=== PATIENT | female | born 1955 | race Caucasian/White ===

== ENCOUNTER 2019-08-31 11:02 | Outpatient (CLI) | payer BC, SELFPAY ==
--- NOTE | 2019-08-31 | US_ITS ---
WS: [id number] Complete ABDOMINAL ULTRASOUND HISTORY: ABDOMINAL PAIN, EPIGASTRIC COMPARISON: 09/22/2017 and 03/24/2014. CT 09/22/2017 Liver: 20.0 cm in length. Liver is enlarged with no intrapedicular dilatation or mass. Mild hepatic s teatosis. There is a hypoechoic well-circumscribed mass in the fat posterior to the liver. This corre sponds to a RIGHT adrenal adenoma which has been previously described. Adenoma measures 2.8 x 2.7 cm. Gallbladder: Normally distended with no gallstones, wall thickening or pericholecystic fluid. Gallbladder wall thickness: 0.2 cm. Pancreas: Normal size and echogenicity. CBD: 0.4 cm. Right kidney: 13.1 cm x 5.4 cm x 4.5 cm. No mass, cortical thickening or hydronephrosis. Left kidney: 12.0 cm x 4.5 cm x 4.2 cm. No mass, cortical thickening or hydronephrosis. Spleen: Spleen is slightly enlarged measuring 14 cm in length. Abdominal aorta and IVC are within normal limits. No ascites. US/US abdomen complete* [id number] IMPRESSION: 1. Normal gallbladder. 2. Mild hepatic steatosis and hepatomegaly. 3. RIGHT adrenal adenoma. 4. Spleen is slightly enlarged at 14 cm in length. Similar to the prior study of 03/24/2014.
== END 2019-08-31 11:03 | disposition home or self-care (01) ==
LOC: US 11:02
PROVIDERS: Family Provider Family Medicine; PCP Family Medicine; Visit Provider Family Medicine
DX: K76.0 Fatty (change of) liver, not elsewhere classified (principal); R16.0 Hepatomegaly, not elsewhere classified; D35.01 Benign neoplasm of right adrenal gland; R16.1 Splenomegaly, not elsewhere classified
CPT/HCPCS: 76700

== ENCOUNTER 2019-09-19 08:44 | Outpatient (REF) | payer BC, SELFPAY ==
[2019-09-24 13:39] LABS: Urine Cortisol 1 mg/dL
[2019-09-29 13:12] LABS: Calculated Total (E+NE) 27 mcg/24 h (26-121)
== END 2019-09-19 08:45 | disposition home or self-care (01) ==
LOC: LAB 08:44
PROVIDERS: Family Provider Family Medicine; PCP Family Medicine; Visit Provider Family Medicine
DX: K76.0 Fatty (change of) liver, not elsewhere classified (principal); D35.01 Benign neoplasm of right adrenal gland; R16.1 Splenomegaly, not elsewhere classified; E11.9 Type 2 diabetes mellitus without complications; K21.9 Gastro-esophageal reflux disease without esophagitis; E78.00 Pure hypercholesterolemia, unspecified; I10 Essential (primary) hypertension; E03.9 Hypothyroidism, unspecified; R10.13 Epigastric pain
CPT/HCPCS: 36415; 82088; 82384; 82533; 83835; 84244

== ENCOUNTER 2019-10-04 07:39 | Day surgery (SDC) | payer BC, SELFPAY ==
[2019-10-03 10:51] VITALS: BMI 46.0
--- NOTE | 2019-10-04 07:56 | W.PM.OPSFHP ---
Same Day Surgery H&P Indication for Procedure/HPI DATE OF PROCEDURE: October 04, 2019 CHIEF COMPLAINT/INDICATIONFOR SURGICAL PROCEDURE: gerd PREOP DIAGNOSIS: gerd/screening PLANNED PROCEDRUE: Operation Date: 10/04/19 09:00 Proposed Procedures p EGD/COLON 15637 48794 R10.9(Not Applicable) - Vasquez Gilmore MD s Colonoscopy(Not Applicable) - Vasquez Gilmore MD Medications/Allergies* Home Medications Medication Instructions Recorded Confirmed Type albuterol sulfate 90 mcg/actuation 1 inh INHALATION Q4-5H PRN 09/06/19 10/03/19 History aerosol inhaler allopurinol 300 mg tablet 300 mg PO DAILY 09/06/19 10/03/19 History cetirizine 10 mg tablet 10 mg PO DAILY 09/06/19 10/03/19 History coenzyme Q10 100 mg capsule 300 mg PO DAILY cap 09/06/19 10/03/19 History fluticasone 250 mcg-salmeterol 50 1 inh INHALATION DAILY 09/06/19 10/03/19 History mcg/dose blistr powdr for inhalation cornelio (Zingiber officinalis) 500 500 mg PO DAILY 09/06/19 10/03/19 History mg capsule glimepiride 1 mg tablet 2 mg PO DAILY 09/06/19 10/03/19 History levothyroxine 150 mcg tablet 150 mcg PO DAILY 09/06/19 10/03/19 History lisinopril 40 mg tablet 40 mg PO DAILY 09/06/19 10/03/19 History magnesium oxide 400 mg (241.3 mg 400 mg PO DAILY tab 09/06/19 10/03/19 History magnesium) tablet pantoprazole 40 mg tablet,delayed 40 mg PO DAILY 09/06/19 10/03/19 History release sitagliptin 50 mg tablet 50 mg PO DAILY 09/06/19 10/03/19 History triamcinolone acetonide INTRANASAL 09/06/19 09/06/19 History zinc 50 mg tablet 50 mg PO DAILY 09/06/19 10/03/19 History cholecalciferol (vitamin D3) 1,250 mcg PO DAILY 10/03/19 10/03/19 History pyridoxine (vitamin B6) 25 mg PO DAILY 10/03/19 10/03/19 History vitamin B complex 1 tab PO DAILY 10/03/19 10/03/19 History Allergies/Adverse Reactions Allergy/AdvReac Type Severity Reaction Status Date / Time cobamamide Allergy ADR/ALGY-Fl Verified 09/06/19 13:09 [From Adenosylcobalamin] ushing meperidine Allergy ALGY-Rash Verified 09/06/19 13:09 Penicillins Allergy ALGY-Rash Verified 09/06/19 13:09 Sulfa (Sulfonamide Allergy ALGY-Rash Verified 09/06/19 13:09 Antibiotics) Pertinent History/Comorbid Conditions* Medical History (Updated 09/06/19 @ 17:40 by Vasquez Gilmore MD) Diabetes GERD (gastroesophageal reflux disease) Hypercholesteremia Hypertension Hypothyroidism Ventral hernia Surgical History (Updated 09/06/19 @ 13:45 by Vasquez Gilmore MD) History of arthroscopic knee surgery Right 2x History of colonoscopy 2016 History of esophagogastroduodenoscopy (EGD) Family History (Updated 09/06/19 @ 11:34 by JUANY Mtz) Heart disease Anesthesia complication Father Denies family history of Bleeding disorder Social History Smoking and tobacco status: never smoked Alcohol intake: never Lives independently: Yes Household members: spouse Current occupational status: employed History of recent travel: No Pertinent Exam Findings alert, oriented x 3 and regular rate & rhythm Recommendations Surgery/Procedure today Coding Level of Care Code Acute Rn Telephone Triage for Lucrecia Fernandes
[2019-10-04 08:10] VITALS: BP 152/107; PULSE 82; RESP 16; TEMP 36.8; O2SAT 97
[2019-10-04] MEDS: sodium chloride 0.9% 1,000 ML 30 ML (08:17)
[2019-10-04 08:23] LABS: Glucose Point of Care 123 mg/dL (70-110)
--- NOTE | 2019-10-04 08:42 | ANES.PREANE2 ---
Pre-Anesthetic Assessment Pre-Anesthetic Assessment: Height/Weight: Height 1.7 m Weight 133.356 kg Temp Pulse Resp BP Pulse Ox 98.2 F 82 16 152/107 97 10/04/19 08:10 10/04/19 08:10 10/04/19 08:10 10/04/19 08:10 10/04/19 08:10 Preop Diagnosis: abdominal pain/gerd Proposed Procedure: Operation Date: 10/04/19 09:00 Proposed Procedures p EGD/COLON 73410 74892 R10.9(Not Applicable) - Vasquez Gilmore MD s Colonoscopy(Not Applicable) - Vasquez Gilmore MD Familial anesthetic complications: none Was Beta Lola taken within 24 hours: N/A Last intake: Intake Last Liquid Date 10/03/19 Last Liquid Time 22:00 Last Solid Date 10/02/19 Last Solid Time 20:00 Social: Social History: No alcohol and No tobacco Airway: Submandibular: WNL Cervical ROM: WNL MP: 1 Dentition: Full History/ROS: No significant history except as noted Pulmonary: Pulmonary: Asthma (advair daily), Sleep apnea (CPAP) and SOB CV/HEM: CV/HEM: Arrythmia and HTN : : None reported Hepatic: Hepatic: None reported GI: GI: GERD (controlled with meds) Metabolic: Metabolic: DM ( usually 95-106 ), Hyperlipidemia, Morbid obesity and Thyroid (hypothyroid) Musc/skel: Musc/skel: Lower Back Pain and Weakness (legs) Neuropsych: Neuropsych: None reported Anesthetic Plan: ASA status: 3 Anesthesia: MAC Risk of > 500 ml blood loss (7ml/kg in children): No PFSH Anesthesia PFSH: Medical History (Updated 09/06/19 @ 17:40 by Vasquez Gilmore MD) Diabetes GERD (gastroesophageal reflux disease) Hypercholesteremia Hypertension Hypothyroidism Ventral hernia Surgical History History of arthroscopic knee surgery Right 2x History of colonoscopy 2016 History of esophagogastroduodenoscopy (EGD) Social History Smoking and tobacco status: never smoked Alcohol intake: never Lives independently: Yes Household members: spouse Current occupational status: employed History of recent travel: No Data Anesthesia Other Labs: Laboratory Results - last 48 hr 10/04/19 08:15 POC Glucose 123 Cardiac Studies: No Data to Display
--- NOTE | 2019-10-04 08:47 | ANES.PREANE2 ---
Pre-Anesthetic Assessment Pre-Anesthetic Assessment: Height/Weight: Height 1.7 m Weight 133.356 kg Temp Pulse Resp BP Pulse Ox 98.2 F 82 16 152/107 97 10/04/19 08:10 10/04/19 08:10 10/04/19 08:10 10/04/19 08:10 10/04/19 08:10 Preop Diagnosis: Ventral hernia Proposed Procedure: Operation Date: 10/04/19 09:00 Proposed Procedures p EGD/COLON 58656 14285 R10.9(Not Applicable) - Vasquez Gilmore MD s Colonoscopy(Not Applicable) - Vasquez Gilmore MD Last intake: Intake Last Liquid Date 10/03/19 Last Liquid Time 22:00 Last Solid Date 10/02/19 Last Solid Time 20:00 Social: Social History: No alcohol and No tobacco Exam: Pre-Anes Outpt Exam: alert, oriented x 3, clear to auscultation bilaterally (bilat wheezes) and regular rate & rhythm Airway: Submandibular: WNL Cervical ROM: WNL MP: 2 Dentition: Full History/ROS: No significant history except as noted Pulmonary: Pulmonary: Asthma, COPD and Sleep apnea CV/HEM: CV/HEM: HTN : : None reported Hepatic: Hepatic: None reported GI: GI: GERD Metabolic: Metabolic: Morbid obesity Musc/skel: Musc/skel: None reported Neuropsych: Neuropsych: None reported Anesthetic Plan: ASA status: 3 Anesthesia: Anesthesia Evaluation and MAC Risk of > 500 ml blood loss (7ml/kg in children): No PFSH Anesthesia PFSH: Medical History Diabetes GERD (gastroesophageal reflux disease) Hypercholesteremia Hypertension Hypothyroidism Ventral hernia Surgical History History of arthroscopic knee surgery Right 2x History of colonoscopy 2016 History of esophagogastroduodenoscopy (EGD) Family History Father Anesthesia complication Other Heart disease Denies family history of Bleeding disorder Social History Smoking and tobacco status: never smoked Alcohol intake: never Lives independently: Yes Household members: spouse Current occupational status: employed History of recent travel: No Data Anesthesia Other Labs: Laboratory Results - last 48 hr 10/04/19 08:15 POC Glucose 123 Cardiac Studies: No Data to Display
[2019-10-04 09:40] VITALS: BP 106/66; PULSE 61; RESP 16; TEMP 36.2; O2SAT 100
--- NOTE | 2019-10-04 09:46 | ANE.PACU2 ---
 Inpatient post-anesthesia follow up: Airway intact: Yes Vital signs: Temperature 97.1 F Pulse Rate 61 Respiratory Rate 16 Blood Pressure 106/66 Pulse Oximetry 100 Oxygen Delivery Me thod Nasal Cannula Oxygen Flow Rate 4 Fraction of Inspir ed Oxygen Hydration adequate: Yes Nausea and vomiting: No Pain level: 1 Mental status: Baseline
[2019-10-04 09:49] VITALS: BP 121/69; PULSE 64; RESP 18; O2SAT 100
== END 2019-10-04 10:05 | disposition home or self-care (01) ==
PROVIDERS: Family Provider Family Medicine; PCP Family Medicine; Visit Provider Surgery
PROC: 0DJ08ZZ Inspection of Upper Intestinal Tract, Via Natural or Artificial Opening Endoscopic (ICD-10-PCS; CPT 43235; principal; 2019-10-04 09:00)
PROC: 0DJD8ZZ Inspection of Lower Intestinal Tract, Via Natural or Artificial Opening Endoscopic (ICD-10-PCS; CPT 45378; 2019-10-04 09:00)
DX: Z12.11 Encounter for screening for malignant neoplasm of colon (principal); K21.9 Gastro-esophageal reflux disease without esophagitis; K31.7 Polyp of stomach and duodenum; K29.30 Chronic superficial gastritis without bleeding; D12.0 Benign neoplasm of cecum; E03.9 Hypothyroidism, unspecified; Z82.49 Family history of ischemic heart disease and other diseases of the circulatory system; K57.30 Diverticulosis of large intestine without perforation or abscess without bleeding; K64.8 Other hemorrhoids; G47.30 Sleep apnea, unspecified; I10 Essential (primary) hypertension; J44.9 Chronic obstructive pulmonary disease, unspecified; E66.01 Morbid (severe) obesity due to excess calories; Z68.42 Body mass index [BMI] 45.0-49.9, adult; E11.9 Type 2 diabetes mellitus without complications
CPT/HCPCS: 12345; 36416; 43251; 45380; 82962; 88305; J2704; J3370; J7030; J7050

== ENCOUNTER 2020-01-02 13:26 | Outpatient (CLI) | payer BC, SELFPAY ==
--- NOTE | 2020-01-02 13:43 | XR_ITS ---
WS: [id number] XR shoulder LT min 2V* [id number] REASON FOR EXAM: LEFT SHOULDER PAIN FINDINGS: Mild degenerate changes of the acromioclavicular joint. Calcification along noted along the insertion of the greater tuberosity. The glenoid humeral articulations normal. No fractures of the scapular are clavicle. XR/XR shoulder LT min 2V* [id number] IMPRESSION: Low-grade calcific tendinitis of the shoulder Mild osteoarthritic changes off the acromion process.
== END 2020-01-02 13:27 | disposition home or self-care (01) ==
LOC: WPI 13:27
PROVIDERS: Family Provider Family Medicine; PCP Family Medicine; Visit Provider Family Medicine
DX: M75.32 Calcific tendinitis of left shoulder (principal); M19.012 Primary osteoarthritis, left shoulder
CPT/HCPCS: 73030

== ENCOUNTER 2020-01-24 07:29 | Outpatient (CLI) | payer BC, SELFPAY ==
--- NOTE | 2020-01-24 08:00 | NM_ITS ---
WS: [id number] NUCLEAR MEDICINE HIDA SCAN WITH GALLBLADDER EJECTION FRACTION HISTORY: abdominal pain, bloating COMPARISON: 10/02/2017 TECHNIQUE: The patient was intravenously injected with 7.9 mCi of TC99m Mebrofenin. Immediate imaging over the right upper quadrant was followed by 5 minute image and additional images for a total of 60 minutes. Normal uptake of radiotracer throughout the liver. Activity identified in the gallbladder at 15 minutes and well distended by 60 minutes. Activity in the proximal small bowel was seen by 15 minutes. Good washout of the radiotracer from the liver by 60 minutes. The patient then drank 8 ounces of Ensure Plus. Ejection fraction at 60 minutes was 90%. Normal GB ej ection fraction is 35-75%. Post fatty meal symptoms: None. NM/NM hepatobiliary w phar* [id number] IMPRESSION: 1. Normal HIDA scan. 2. Normal gallbladder ejection fraction.
== END 2020-01-24 07:30 | disposition home or self-care (01) ==
LOC: RAD 07:30
PROVIDERS: PCP Family Medicine; Visit Provider Surgery
DX: R10.9 Unspecified abdominal pain (principal); R14.0 Abdominal distension (gaseous)
CPT/HCPCS: 78227; A9537

== ENCOUNTER 2020-02-03 07:50 | Outpatient (CLI) | payer BC, SELFPAY ==
--- NOTE | 2020-02-03 08:00 | MR_ITS ---
WS: [id number] MRI LEFT SHOULDER NONCONTRAST TECHNIQUE: Sagittal T2, coronal T1, T2 and proton density imaging. Axial gradient PDE imaging. CLINICAL INFORMATION: M25.519 Pain in unspecified shoulder COMPARISON: None. FINDINGS: Moderate degenerative arthritis at the AC joint with a small amount of edema. Minimal downsloping of the acromion. Mild narrowing of subacromial space. Mild tendinopathy distal supraspinatus. Tiny intra substance tear involving the distal dorsal supraspinatus. Moderate tendinopathy involving the infrasp inatus at the insertion. Small bursal surface tear involving the distal infraspinatus near the insert ion. Normal teres minor. Normal subscapularis. Tendinopathy involving the intra-articular biceps tendon. N ormal biceps tendon in the bicipital groove. Glenoid labrum appears grossly normal. T2 signal abnorma lity in the rotator interval. Biceps labral anchor appears intact. MR/MR shoulder LT wo con* [id number] IMPRESSION: 1. Moderate degenerative arthritis AC joint with slight narrowing of the subac romial space. 2. Tendinopathy distal infraspinatus and supraspinatus. Tiny intrasubstance te ar involving the distal dorsal supraspinatus. Tendinopathy with tiny bursal jackie face tear involving the distal infraspinatus. 3. Rotator cuff is otherwise normal. 4. Prominent tendinopathy involving the intra-articular biceps tendon. 5. Normal biceps tendon in the bicipital groove.
--- NOTE | 2020-02-03 08:45 | MR_ITS ---
WS: [id number] INDICATION: Left shoulder pain. Lump mid proximal humerus. TECHNIQUE: MR of the left humerus without gadolinium enhancement. Coronal T1 and STIR imaging. Axial T2 and PD imaging. Sagittal T1 and STIR imaging. FINDINGS: Palpable marker is placed over the upper left arm in the area of pain and concern. Deep to the palpable markers is normal underlying subcutaneous lipomatous tissue. No evidence of underlying m ass or lesion. No drainable abscess or fluid collection. No pathologic abnormalities deep to the targ eted markers. Bone marrow signal in the humerus is normal. Shoulder findings discussed on the shoulder MRI. MR/MR humerus LT wo con* [id number] IMPRESSION: 1. No evidence of pathologic mass or lesion deep to the target markers. Normal underlying subcutaneous fat. 2. Normal bone marrow signal in the humerus 3. Shoulder findings described on shoulder MRI
[2020-02-03 10:10] LABS: Blood Urea Nitrogen 24 mg/dL (8-23); Glomerular Filtration Rate 45.4 mL/min (90-130)
== END 2020-02-03 07:51 | disposition home or self-care (01) ==
PROVIDERS: PCP Family Medicine; Visit Provider Specialist
DX: M25.512 Pain in left shoulder (principal); M19.012 Primary osteoarthritis, left shoulder
CPT/HCPCS: 73218; 73221; 82565; 84520

== ENCOUNTER 2020-02-17 13:25 | Outpatient (CLI) | payer BC, SELFPAY ==
[2020-02-17] MEDS: iohexol 300 mg/mL 50 mL Btl PO (14:06)
--- NOTE | 2020-02-17 14:30 | CT_ITS ---
WS: [id number] CT ABDOMEN AND PELVIS WITH CONTRAST HISTORY: ventral hernia TECHNIQUE: Imaging performed of the abdomen and pelvis with IV contrast. Single phase imaging of the abdomen. Coronal and sagittal reformats are submitted. All CT scans at [facility] use at least one of these dose optimization techniques: automated exposure control; mA and/or kV adjustment per patient size (includes targeted exams where dose is matched to clinical indication); or iterativ e reconstruction. IV CONTRAST: Visipaque 320; 95 mL IV. Oral contrast: Yes. DLP: 1170.82 mGy-cm. COMPARISON: 03/24/2014 Lower thorax: Multiple 2 to 3 mm nodules at the lung bases are stable. No suspicious mass. Heart is n ormal size. No hiatal hernia. Liver/biliary system: Mild hepatic steatosis. No bile duct dilatation or mass. Gallbladder: Normal. No gallstones or wall thickening. No pericholecystic fluid. Pancreas: Normal. Spleen: Normal. Adrenal glands: Well-circumscribed low-attenuation 3.0 cm mass in the RIGHT adrenal gland is stable. Normal LEFT adrenal gland. Right kidney: Mild cortical thinning. No obstruction or mass. Left kidney: Mild cortical thinning is stable. Slightly more thinning and atrophy of the LEFT kidney as compared to the RIGHT. Similar to the prior study. Aorta: Mild atherosclerosis, no aneurysm. Lymphadenopathy: None. Free fluid: None. GI tract: Appendix is not identified. No obstruction. A few scattered diverticula in the distal colon without inflammation. Abdominal wall: Muscular defects in the ventral abdominal wall containing omental fat only. The large st defect midline measures 5.2 cm. Just superior to this large defect is a smaller hernia with a maxi mum defect of 2.2 cm. This hernia also contains fat. The overall length of both hernias together is 6 .8 cm. Pelvis: No free fluid or adenopathy. Uterus and ovaries are normal. Bones: Mild degenerative disc disease at L4-5. CT/CT abdomen pelvis w con* [id number] IMPRESSION: 1. Ventral abdominal wall hernias x2. Hernias are very closely positioned randy cent to each other and along the midline of the abdominal wall. Both hernias co ntaining omental fat only. 2. Stable RIGHT adrenal mass.
[2020-02-17] MEDS: iodixanol 320 mg/mL 100mL Btl IV (14:46)
== END 2020-02-17 13:26 | disposition home or self-care (01) ==
PROVIDERS: PCP Family Medicine; Visit Provider Surgery
DX: K43.9 Ventral hernia without obstruction or gangrene (principal); E27.9 Disorder of adrenal gland, unspecified
CPT/HCPCS: 74177; Q9967

== ENCOUNTER 2020-02-20 05:49 | Day surgery (SDC) | payer BC, SELFPAY ==
[2020-02-16 10:37] VITALS: BMI 48.0
--- NOTE | 2020-02-16 10:45 | ECG_ITS ---
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 Measurements Intervals Bartley Rate: 67 P: 37 SC: 157 QRS: 8 QRSD: 129 T: 14 QT: 406 QTc: 429 Interpretive Statements SINUS RHYTHM RIGHT BUNDLE BRANCH BLOCK [120+ ms QRS DURATION, UPRIGHT V1, 40+ ms S IN I/aVL/V4/V5/V6] WARNING: DATA QUALITY MAY AFFECT INTERPRETATION Compared to ECG 09/22/2017 18:41:47 No significant changes Electronically Signed On 02-17-2020 15:57:19 CDT by Alejandro Maurer M.D. [email or web address]
--- NOTE | 2020-02-16 11:02 | ANES.PREANE2 ---
Pre-Anesthetic Assessment Pre-Anesthetic Assessment: Height/Weight: Height 1.7 m Weight 139.253 kg Preop Diagnosis: Incarcerated ventral hernia Proposed Procedure: Operation Date: 02/20/20 07:00 Proposed Procedures p Laparoscopic Ventral Hernia Repair w/ Mesh 16357 k43.9(Not Applicable) - Vasquez Gilmore MD Familial anesthetic complications: None Social: Social History: No alcohol and No tobacco Exam: Pre-Anes Outpt Exam: alert, oriented x 3, clear to auscultation bilaterally and regular rate & rhythm Additional Exam Findings (including area of procedure): murmur auscultated Airway: Cervical ROM: WNL MP: 1 Dentition: Full Pulmonary: Pulmonary: Asthma (mild) and Sleep apnea (CPAP (quit wearing it two years ago, d/t intolerance)) CV/HEM: CV/HEM: HTN and Murmur (diagnosed at age 36, was told she'd probably had it all her life - no syncope, no chest pains, SOB w/ walking up 2 flights of stairs and bending, mostly likely d/t deconditioningover) Comments: Armando did echo 4 -5 years 10/2015 CONCLUSIONS 1-Normal left ventricular size, systolic function and wall thickness, with no regional wall motion abnormalities. Normal left ventricular wall thickness. Normal diastolic filling pattern. Left ventricular ejection fraction is estimated at 67 2-Moderately thickened mitral valve. Moderate mitral annular calcification. No mitral valve stenosis. No mitral valve regurgitation. 3-There is no pericardial effusion. 4-Pulmonary artery systolic pressure is within normal limits. 5-Right atrial pressure is around 5 mm of mercury. 6-When compared to the echocardiogram dated 10/12/2013 there is no significant change : : Chronic renal Insufficiency GI: GI: GERD Metabolic: Metabolic: DM, Hyperlipidemia, Morbid obesity and Thyroid Musc/skel: Musc/skel: Lower Back Pain Neuropsych: Neuropsych: None reported Anesthetic Plan: ASA status: 3 Anesthesia: General Risk of > 500 ml blood loss (7ml/kg in children): No PFSH Anesthesia PFSH: Medical History (Updated 02/16/20 @ 10:32 by Effie Rivas RN) Basal cell carcinoma Diabetes GERD (gastroesophageal reflux disease) History of colon polyps Hypercholesteremia Hypertension Hypothyroidism Shoulder pain, left Squamous cell carcinoma Ventral hernia Surgical History History of arthroscopic knee surgery Right 2x History of colonoscopy (~10/04/19) Cecal and sigmoid colon polyp, mild diverticulosis History of esophagogastroduodenoscopy (EGD) (~10/04/19) Gastric polyp Family History Father Anesthesia complication Other Heart disease Denies family history of Bleeding disorder Social History Smoking and tobacco status: never smoked Alcohol intake: never Lives independently: Yes Household members: spouse Current occupational status: employed History of recent travel: No Data Anesthesia Cardiac Studies: No Data to Display
[2020-02-20] VITALS (10 sets, daily range): BP systolic 120–185; BP diastolic 65–95; PULSE 63–85; RESP 12–28; TEMP 36.4–37; O2SAT 93–99
[2020-02-20] MEDS: sodium chloride 0.9% 1,000 ML 30 ML IV (06:20)
[2020-02-20] MEDS: vancomycin 1,000 MG in sodium chloride 0.9% 250 ML 250 MG IV (06:20)
[2020-02-20 06:22] LABS: Glucose Point of Care 193 mg/dL (70-110)
--- NOTE | 2020-02-20 06:31 | P.ANESUD_ITS ---
Pre-Anesthetic Update Pre-Anesthetic Assessment: Date of Surgery/Procedure: 02/20/20 Preop Janay gnosis: Incarcerated ventral hernia Proposed Procedure: Operation Date: 02/20/20 07:00 Proposed Procedures p Laparoscopic Ventral Hernia Repair w/ Mesh 10503 k43.9(Not Applicable) - Vasquez Gilmore MD Any changes to Pre-Anesthetic Assessment?: No Last Intake: Intake Last Liquid Date 02/20/20 Last Liquid Time 04:30 Last Solid Date 02/19/20 Last Solid Time 21:30 Labs Last 48hrs: Laboratory Results - last 48 hr 02/20/20 06:17 POC Glucose 193 Vitals: Temperature 97.5 F L 02/20/20 06:12 Temperature Source Temporal Artery S can 02/20/20 06:12 Pulse Rate 85 02/20/20 06:12 Respiratory Rate 16 02/20/20 06:12 Blood Pressure 164/87 02/20/20 06:26 Blood Pressure Tamela n 112 02/20/20 06:26 Pulse Oximetry 99 02/20/20 06:12 Oxygen Delivery Me thod 02/20/20 06:12 Exam: Pre-Anes Outpt Exam: alert, oriented x 3, clear to auscultation bilaterally and regular rate & rhythm Cardiac Studies: No Data to Display
--- NOTE | 2020-02-20 06:54 | W.PM.OPSUD ---
Surgery/Procedure H&P Update DATE OF PROCEDURE: February 20, 2020 DATE H&P PERFORMED: 01/27/20 H&P UPDATE INFORMATION: I have reviewed H&P completed within last 30 days, I have examined patient prior to procedure and No changes to prior documentation PREOP DIAGNOSIS: Incarcerated ventral hernia PLANNED PROCEDURE: Operation Date: 02/20/20 07:00 Proposed Procedures p Laparoscopic Ventral Hernia Repair w/ Mesh 56063 k43.9(Not Applicable) - Vasquez Gilmore MD
--- NOTE | 2020-02-20 07:30 | SUR.OPER ---
notified of surgical start
--- NOTE | 2020-02-20 08:28 | P.OP_ITS ---
Operative Report Date of procedure: February 20, 2020 Pre-op Diagnosis: Incarcerated ventral hernia Post-op diagnosis: same Procedure Done: Laparoscopic repair of incarcerated ventral hernia containing omentum using Proceed mesh measuring 20 x 15 cm Pathology: none sent Surgeon: Vasquez Gilmore Anesthesia: General Estimated blood loss (mL): 10 Condition: stable Disposition: PACU Procedure: The patient was taken to the Operating Room and was intubated under general anesthesia after the antibiotic had been administered. The abdomen was prepped and draped in a sterile manner. Using a 15 blade, a 2-cm incision was made in the left upper quadrant in the anterior axillary line and pneumoperitoneum was created using Verres needle. A 10 mm Bi port was placed and 15 mm of pneumoperitoneum was created after a 10 mm 30? scope had been introduced. Two 5 mm ports were placed at the level of the umbilicus and in the left lower quadrant under direct visualization. Another 5 mm port was placed in the right lower quadrant under direct visualization. Using a combination of electrocautery and scissors the peritoneum in the midline was taken down and the omental fat within the hernial sac was reduced. There were 3 separate hernia defects identified along the midline. 20 cc of saline mixed with 20 cc of Exparel mixed with 20 cc of 0.5% Marcaine was injected in the midclavicular line for a TAP block under laparoscopic visualization. A spinal needle was introduced through the abdominal wall and the edges of the hernial defect were marked and measured 12 x 8 cm. A 3 cm margin was marked on the abdominal wall on the outer edge of the hernial defect. 20 x 15 cm Proceed mesh was selected and 4 separate 2-0 Buffalo-Adarsh sutures were placed at the 4 corners of the mesh. A 5 mm camera was introduced and the mesh was introduced through the 10 mm port. Grannie needle was passed through the stab incisions and used to grasp the free ends of the Buffalo-Adarsh sutures which were then used to pull the mesh up against the abdominal wall; 5 mm SecurStraps were placed 1 cm apart along the edge of the mesh to hold it against the abdominal wall. At the end of this, it was noted that the mesh was well positioned over the hernial defect. All ports were removed under direct visualization and there was no bleeding noted from the port sites. The external oblique aponeurosis was approximated at this port site using figure of eight 0 Vicryl suture. The subcutaneous tissue was approximated using 3-0 Vicryl sutures. The skin at all 3 port sites was closed using subcuticular 4-0 Monocryl suture. The stab incisions and the 3 port sites were covered with Dermabond. Abdominal binder was placed at the end of the procedure.
--- NOTE | 2020-02-20 08:42 | SUR.PHASEI ---
0840 PATIENT TO PACU FROM OR. RR EVEN AND UNLABORED. ABDOMINAL BINDER IN PLACE. PATIENT MOANING, C/O PAIN. SEE MAR FOR PAIN MED ADMINISTRATION.
[2020-02-20] MEDS: ketorolac 30 mg/mL INJ IVP (08:45)
[2020-02-20] MEDS: fentaNYL 50 mcg/mL INJ 2mL IVP (08:50)
[2020-02-20] MEDS: HYDROcodone-acetaminophen 5-325 mg Tablet 1 TAB PO (09:24)
== END 2020-02-20 11:20 | disposition home or self-care (01) ==
PROVIDERS: PCP Family Medicine; Visit Provider Surgery
PROC: 0WQF4ZZ Repair Abdominal Wall, Percutaneous Endoscopic Approach (ICD-10-PCS; CPT 49653; principal; 2020-02-20 07:00)
DX: K43.6 Other and unspecified ventral hernia with obstruction, without gangrene (principal); I10 Essential (primary) hypertension; G47.30 Sleep apnea, unspecified; E11.9 Type 2 diabetes mellitus without complications; E78.5 Hyperlipidemia, unspecified; E66.01 Morbid (severe) obesity due to excess calories; Z68.42 Body mass index [BMI] 45.0-49.9, adult; Z86.010 Personal history of colon polyps
CPT/HCPCS: 49653; 12345; 36416; 82962; 93005; 96365; C9290; J0131; J1100; J1885; J2370; J2405; J2704; J2710; J3010; J3370; J3490; J7030; J7050

== ENCOUNTER 2020-05-16 14:04 | Outpatient (CLI) | payer BC, SELFPAY ==
--- NOTE | 2020-05-16 14:15 | USCV_ITS ---
Shaniqua Islas Age: 65 Gender: F : 1955 Exam Date: 05/16/2020 14:39 Ordering Phys: Paradise Gonzalez DO Technologist: Gisela Loja [place] [facility] [place] LIGHT [place]ED Risk Factors: Unknown Previous Vascular Surgery: None Right Brachial BP: / Left Brachial BP: / Right Left Velocity (cm/s) Spectral Plaque Velocity (cm/s) Spectral Plaque Syst/Diast Broadening Syst/Diast Broadening 110.30/28.70 Prox CCA 79.50 / 21.40 74.60/ 18.60 Mid CCA 67.50 / 20.50 45.90/ 10.70 Jesus Distal CCA 59.80 / 22.20 Jesus 62.40/ 21.40 Jesus Prox ICA 74.90 / 26.70 Jesus 73.50/ 24.80 Mid ICA 72.60 / 26.00 69.20/ 29.10 Distal ICA 71.80 / 26.00 91.40 Jesus ECA 66.70 Jesus 0.99 ICA/CCA 1.11 Antegrade Vertebral Antegrade 34.20/ 8.00 cm/s 46.60/ 16.80 cm/s Bi Subclavian Tri 89.70 64.90 FINDINGS Comparison: none available. No significant elevation of systolic or diastolic velocities. Diffuse bilateral scattered calcified plaque and intimal thickening throughout the common carotid arteries and extending through the bifurcation. Bilateral antegrade vertebral arteries. CONCLUSIONS Bilateral ICA stenosis less than 50%. Mild to moderate atheromatous plaque. Dr. Mariela Hodges DO (Electronically Signed) Final Date: 16 May 2020 15:44 S
--- NOTE | 2020-05-16 15:00 | USCV_ITS ---
Shaniqua Islas Age: 65 Gender: F : 1955 Exam Date: 05/16/2020 14:18 Ordering Phys: Paradise Gonzalez DO Technologist: Gisela Loja Exam Location: [facility] [place] Indication: LIGHT HEADED BP: 125 / 77 HR: 82 Rhythm: Sinus Technical Quality: Adequate MEASUREMENTS (Male / Female) Normal Values 2D ECHO LV Diastolic Diameter PLAX 3.6 cm 4.2 - 5.9 / 3.9 - 5.3 cm LV Systolic Diameter PLAX 2.3 cm LV Chamber Size 4.3 cm IVS Diastolic Thickness 1.1 cm 0.6 - 1.0 / 0.6 - 0.9 cm IVS Systolic Thickness 1.7 cm LVPW Diastolic Thickness 1.6 cm 0.6 - 1.0 / 0.6 - 0.9 cm LVPW Systolic Thickness 1.7 cm RV Chamber Size 2.7 cm LVOT Diameter 2.0 cm LV Ejection Fraction 2D Teich 67.9 % LV Ejection Fraction MOD 2C 44.6 % LV Ejection Fraction 2C AL 46.2 % LA Diameter 4.1 cm LA Width 4.2 cm LA Height 4.5 cm RA Width 4.1 cm RA Height 4.1 cm Aorta at Sinotubular Diameter 2.8 cm M-MODE LV Diastolic Diameter MM 4.5 cm 4.2 - 5.9 / 3.9 - 5.3 cm LV Systolic Diameter MM 3.0 cm LV Ejection Fraction MM Teich 61.7 % IVS Diastolic Thickness MM 0.9 cm 0.6 - 1.0 / 0.6 - 0.9 cm IVS Systolic Thickness MM 1.6 cm LVPW Diastolic Thickness MM 1.3 cm 0.6 - 1.0 / 0.6 - 0.9 cm LVPW Systolic Thickness MM 1.8 cm RV Diastolic Diameter MM 1.4 cm Aortic Annulus Diameter 3.1 cm LA Ao Ratio MM 1.6 MV E Point Septal Separation 0.9 cm DOPPLER AV Peak Velocity 269.0 cm/s LVOT Peak Velocity 105.0 cm/s AV Area Cont Eq vti 1.5 cm squared AV Area Cont Eq pk 1.3 cm squared MV Area PHT 4.3 cm squared Mitral E to A Ratio 0.8 MV E' Velocity 46.5 cm/s Mitral E to MV E' Ratio 12.0 Mitral E to LV E' Lateral Ratio 10.4 Mitral E to LV E' Septal Ratio 14.2 TR Peak Velocity 262.4 cm/s TR Peak Gradient 27.5 mmHg TR Mean Velocity 192.4 cm/s TR Mean Gradient 17.7 mmHg TR Velocity Time Integral 77.0 cm TV Peak E Velocity 67.0 cm/s Right Atrial Pressure 3.0 mmHg Pulmonary Artery Systolic Pressu 30.5 mmHg PV Peak Velocity 73.0 cm/s RV Acceleration Time 0.2 s RV Ejection Time 0.4 s RV AcT/ET 0.5 FINDINGS Left Ventricle Normal left ventricular cavity size. Normal left ventricular systolic function. No regional wall motion abnormalities. Left ventricular ejection fraction is estimated at 60 %. Grade I/IV diastolic dysfunction (abnormal relaxation filling pattern), normal to mildly elevated filling pressures. Right Ventricle The right ventricle is normal in size and function. Right Atrium The right atrium is normal in size. Left Atrium The left atrium is normal in size. Mitral Valve Severely thickened mitral valve. Severe mitral annular calcification. No mitral valve stenosis. No mitral valve regurgitation. Aortic Valve Severe aortic valve calcification. Moderate aortic valve stenosis, mean gradient 13.9 mmHg, VINI 1.5 cm2, no aortic valve regurgitation. Tricuspid Valve Mild tricuspid valve regurgitation. Pulmonic Valve Structurally normal pulmonic valve without significant stenosis. There is no pulmonic regurgitation. Pericardium Normal pericardium without effusion. Aorta Normal ascending aorta dimension. CONCLUSIONS 1-Normal left ventricular cavity size. Normal left ventricular systolic function. No regional wall motion abnormalities. Left ventricular ejection fraction is estimated at 60 %. Grade I/IV diastolic dysfunction (abnormal relaxation filling pattern), normal to mildly elevated filling pressures. 2-Severely thickened mitral valve. Severe mitral annular calcification. No mitral valve stenosis. No mitral valve regurgitation. 3-Severe aortic valve calcification. Moderate aortic valve stenosis, mean gradient 13.9 mmHg, VINI 1.5 cm2, no aortic valve regurgitation. 4-There is no pericardial effusion. 5-Pulmonary artery systolic pressure is within normal limits. 6-Right atrial pressure is around 5 mm of mercury. 7-When compared to the prior echocardiogram dated 06 November 2015 there appeared to be moderate aortic stenosis with aortic valve area 1.5 cm can now. Mono Roberts MD (Electronically Signed) Final Date: 17 May 2020 19:08 S
== END 2020-05-16 14:05 | disposition home or self-care (01) ==
LOC: US 14:08
PROVIDERS: PCP Family Medicine; Visit Provider Family Medicine
DX: R42 Dizziness and giddiness (principal); I08.0 Rheumatic disorders of both mitral and aortic valves
CPT/HCPCS: 93306; 93880

== ENCOUNTER → 2020-05-25 09:16 | Outpatient (BNVA) | payer BC, SELFPAY | PROVIDERS: PCP Family Medicine; Visit Provider Family Medicine | DX: I10 Essential (primary) hypertension (principal); E11.9 Type 2 diabetes mellitus without complications; E78.5 Hyperlipidemia, unspecified; R55 Syncope and collapse; Z68.42 Body mass index [BMI] 45.0-49.9, adult; Z71.89 Other specified counseling | CPT/HCPCS: 80053; 80061; 82043; 83036; 85025 ==

== ENCOUNTER → 2020-05-30 10:10 | Outpatient (BNVA) | payer BC, SELFPAY | PROVIDERS: PCP Family Medicine; Visit Provider Podiatrist Foot & Ankle Surgery | DX: L81.9 Disorder of pigmentation, unspecified (principal) | CPT/HCPCS: 88305 ==

== ENCOUNTER → 2020-08-07 10:15 | Outpatient (BNVA) | payer BC, SELFPAY | PROVIDERS: PCP Family Medicine; Visit Provider Podiatrist Foot & Ankle Surgery | DX: M79.672 Pain in left foot (principal); E11.43 Type 2 diabetes mellitus with diabetic autonomic (poly)neuropathy; I73.9 Peripheral vascular disease, unspecified; M25.872 Other specified joint disorders, left ankle and foot | CPT/HCPCS: 73630 ==

== ENCOUNTER 2020-08-27 12:48 | Outpatient (CLI) | payer BC, SELFPAY ==
[2020-08-27 12:59] VITALS: BP 166/90; PULSE 92; RESP 18; TEMP 36.2; O2SAT 96; BMI 47.0
--- NOTE | 2020-08-27 13:24 | AMB.MCA ---
Patient Information [facility] COVID test results: No Data to Display Criteria/Plan Inclusion/Exclusion Criteria weight >/= 40kg, + direct test </= 10 days ago and symptom onset </= 10 days ago has diabetes and age >/= 55 and has hypertension not requiring hospitalization, not requiring oxygen (if not chronically on oxygen) and no increase oxygen requirement (if chronically on oxygen) Patient education patient/caregiver received/reviewed fact sheet, Emergency Use Authorization/unapproved drug status discussed with patient/caregiver, alternatives to this treatment discussed with patient/caregiver, risks and benefits of medication reviewed with patient/caregiver, patient/caregiver given opportunity for questions, which were answered and patient/caregiver consents to receiving Monoclonal Antibody Treatment Plan for treatment Meets criteria for Monoclonal Antibody infusion
[2020-08-27 14:45] VITALS: BP 119/65; PULSE 64; RESP 17; TEMP 36.2; O2SAT 98
[2020-08-27 15:39] VITALS: BP 122/70; PULSE 62; RESP 18; TEMP 35.9; O2SAT 97
== END 2020-08-27 15:39 | disposition home or self-care (01) ==
LOC: OPS 12:48
PROVIDERS: PCP Family Medicine; Referring Provider Nurse Practitioner Family; Visit Provider Nurse Practitioner
DX: U07.1 COVID-19 (principal)

== ENCOUNTER → 2020-11-19 08:41 | Outpatient (BNVA) | payer BC, SELFPAY | PROVIDERS: PCP Family Medicine; Visit Provider Family Medicine | DX: E11.42 Type 2 diabetes mellitus with diabetic polyneuropathy (principal); E03.9 Hypothyroidism, unspecified; I10 Essential (primary) hypertension | CPT/HCPCS: 80053; 83036; 84443 ==

== ENCOUNTER 2020-11-30 07:13 | Outpatient (CLI) | payer BC, SELFPAY ==
--- NOTE | 2020-11-30 07:30 | MM_ITS ---
WS: [id number] BILATERAL SCREENING DIGITAL MAMMOGRAM WITH CAD HISTORY: screening mammogram COMPARISON: 11/15/2018 and 11/04/2016 Bilateral CC and MLO views submitted. Computer aided detection analyzed. Breast composition: There are scattered areas of fibroglandular density. No suspicious masses, microc alcifications or architectural distortion. Benign calcifications in each breast. MM/[place] [id number] IMPRESSION: BI-RADS: 2-Benign FOLLOW UP: 1 Year Follow-up
== END 2020-11-30 07:14 | disposition home or self-care (01) ==
PROVIDERS: PCP Family Medicine; Visit Provider Family Medicine
DX: Z12.31 Encounter for screening mammogram for malignant neoplasm of breast (principal)
CPT/HCPCS: 77067

== ENCOUNTER 2020-12-04 11:00 | Outpatient (CLI) | payer BC, SELFPAY | END 2020-12-04 11:01 | disposition home or self-care (01) | LOC: SLEEP 12-05 14:38 | PROVIDERS: PCP Family Medicine; Visit Provider Family Medicine | DX: G47.33 Obstructive sleep apnea (adult) (pediatric) (principal) | CPT/HCPCS: 80053; 83036; 84443; 94762 ==

== ENCOUNTER 2020-12-05 22:52 | Emergency (ER) | payer BC, SELFPAY ==
[2020-12-05 23:02] VITALS: BP 138/84; PULSE 82; RESP 16; TEMP 37.1; O2SAT 96; BMI 47.0
--- NOTE | 2020-12-05 23:13 | XRR_ITS ---
PROCEDURE INFORMATION: Exam: XR Lumbosacral Spine Exam date and time: 12/05/2020 11:14 PM Age: 65 years old Clinical indication: Injury or trauma; Blunt trauma (contusions or hematomas); Injury details: Fall down bleachers x yesterday. Pain in lower back TECHNIQUE: Imaging protocol: XR of the lumbosacral spine. Views: 2 or 3 views. COMPARISON: CT abdomen pelvis w con* [id number] 02/17/2020 2:43 PM FINDINGS: Bones/joints: No fracture or dislocation. Loss of the normal lordosis. Moderate degenerative changes of the lower lumbar spine. Soft tissues: Unremarkable. XR/XR lumbar spine 2-3V* [id number] IMPRESSION: No acute findings.
--- NOTE | 2020-12-05 23:13 | XRR_ITS ---
PROCEDURE INFORMATION: Exam: XR Right Knee Exam date and time: 12/05/2020 11:21 PM Age: 65 years old Clinical indication: Injury or trauma; Blunt trauma; Injury details: PT fall x yesterday. Pain in right knee TECHNIQUE: Imaging protocol: XR Right knee. Views: 3 views. COMPARISON: No relevant prior studies available. FINDINGS: Bones/joints: No acute displaced fracture or dislocation. Severe tricompartmental osteoarthritis with marginal osteophytosis. Large joint effusion. Soft tissues: Normal. Vasculature: Extensive systemic vascular calcification. XR/XR knee RT 3V* [id number] IMPRESSION: 1. No acute displaced fracture or dislocation. 2. Large nonspecific joint effusion.
--- NOTE | 2020-12-05 23:13 | XRR_ITS ---
PROCEDURE INFORMATION: Exam: XR Right Hip Exam date and time: 12/05/2020 11:14 PM Age: 65 years old Clinical indication: Injury or trauma; Blunt trauma (contusions or hematomas); Injury details: Fall x yesterday on right side. Pain in right hip TECHNIQUE: Imaging protocol: XR Right hip. Views: 1 view hip with pelvis when performed. COMPARISON: CT abdomen pelvis w con* [id number] 02/17/2020 2:43 PM FINDINGS: Bones/joints: No acute displaced fracture or dislocation. Soft tissues: Unremarkable. XR/XR hip RT 2-3V wo/w pel* [id number] IMPRESSION: No acute findings.
--- NOTE | 2020-12-05 23:13 | XRR_ITS ---
PROCEDURE INFORMATION: Exam: XR Right Ankle Exam date and time: 12/05/2020 11:14 PM Age: 65 years old Clinical indication: Injury or trauma; Blunt trauma; Injury details: Fall x yesterday on right side. Pain in right ankle TECHNIQUE: Imaging protocol: XR Right ankle. Views: 3 or more views. COMPARISON: No relevant prior studies available. FINDINGS: Bones/joints: No acute displaced fracture or dislocation. Prominent calcaneal enthesopathy. [id number] osteoarthritis throughout the midfoot. Soft tissues: Normal. Vasculature: Extensive systemic vascular calcification. XR/XR ankle RT min 3V* [id number] IMPRESSION: No acute displaced fracture or dislocation.
--- NOTE | 2020-12-05 23:47 | ED_ITS ---
HPI - Extremity Problem General: Chief complaint: Extremity Injury, Lower Stated complaint: Leg pain Time Seen by Provider: 12/05/20 23:18 Source: patient Mode of arrival: ambulatory Limitations: no limitations History of Present Illness: HPI Narrative: 65-year-old female states she fell last night at a graduation at [employer]. States she fell on the right side landed on her right knee. She states she had right ankle knee and hip pain since the fall. States the pain is worse in her knee. States she is able to ambulate but is very difficult for her. She rates her pain a 7 out of 10. Improved with rest and worse with ambulation. Denies hitting her head denies any allergies. Associated symptoms: Deny chest pain, fever(s) or rash Review of Systems Const: Denies: fever(s), chills, body aches or change in appetite Eyes: Denies: blurry vision or eye discomfort ENMT: Denies: throat pain or dental pain Card: Denies: chest pain Resp: Denies: dyspnea GI: Denies: abdominal pain, nausea, vomiting or diarrhea : Denies: dysuria Musc: Reports: extremity pain and joint pain Skin/Breast: Denies: rash Neuro: Denies: headache(s) Psych: Denies: depression Edson/Lymph: Denies: easy bruising All/Imm: Denies: urticaria PFSH ED PFSH: Medical History Basal cell carcinoma CKD (chronic kidney disease), stage III Dyslipidemia GERD (gastroesophageal reflux disease) History of asthma History of cardiac murmur History of colon polyps Hx of gout Hx of sleep apnea Hypertension Hypothyroidism Shoulder pain, left Squamous cell carcinoma Type 2 diabetes mellitus, without long-term current use of insulin Ventral hernia Surgical History History of arthroscopic knee surgery Right 2x History of colonoscopy (~10/04/19) Cecal and sigmoid colon polyp, mild diverticulosis History of esophagogastroduodenoscopy (EGD) (~10/04/19) Gastric polyp History of incisional hernia repair (02/20/20) Family History Father Anesthesia complication Other Heart disease Denies family history of Bleeding disorder Social History Smoking and tobacco status: never smoked Alcohol intake: never Lives independently: Yes Household members: spouse Current occupational status: employed History of recent travel: No Physical Exam Const: COMMON NORMALS: no acute distress, patient oriented x3 and healthy appearing HENMT: COMMON NORMALS: normocephalic and atraumatic HEAD & SCALP: normocephalic and atraumatic Eye: COMMON NORMALS: Equal, round and reactive pupils present and EOMs intact bilaterally PUPIL: Yes Equal, round and reactive pupils present Neck/C-Spine: COMMON NORMALS: full ROM and supple Chest: COMMONS NORMALS: normal inspection of the chest and normal palpation of entire chest wall Resp: COMMON NORMALS: normal respiratory effort, No retractions, No use of accessory muscles and clear to auscultation bilaterally AUSCULTATION: clear to auscultation bilaterally Cardio: COMMON NORMALS: regular rate, regular rhythm and No murmurs present (Cardio) RATE: regular rate RHYTHM: regular rhythm GI: COMMON NORMALS: Normal to inspection, nondistended, normoactive bowel sounds present, Soft to palpation, non-tender and no masses PALPATION: Yes Soft to palpation Extremity: COMMON NORMALS: full ROM NARRATIVE EXTREMITY EXAM: Tenderness to right knee and right hip with no obvious deformities Neuro: COMMON NORMALS: patient oriented x3, moves all extremities and no focal motor deficits Psych: COMMON NORMALS: mental status grossly normal, Normal thought process present and cooperative THOUGHT PROCESS: Normal thought process present Skin: COMMON NORMALS: no rashes or lesions noted and no wounds GENERAL SKIN EXAM: no rashes or lesions noted Course Vital Signs: Vital signs: Vital Signs Temperature 98.8 F 12/05/20 23:02 Pulse Rate 82 12/05/20 23:02 Respiratory Rate 20 H 12/06/20 01:08 Blood Pressure 156/72 12/06/20 01:08 Pulse Oximetry 97 12/06/20 00:09 MDM - Extremity (Nontraumatic) MDM Narrative: Medical decision making narrative: Patient presents with knee pain after a fall. X-rays here show no fracture. She does have a joint infusion. We will place her in a knee immobilizer and have her follow-up with Dr. Deng. X-ray of her hip showed no fracture either. Most of her pain is in her knee. She is to weight-bear only as tolerated. We will place her on pain meds. She is to follow-up in 2 to 4 days return to the ER if worsening. She understands and agrees to plan. Imaging Data^: xr lumbar: Attestation: I personally reviewed and interpreted this imaging study as follows: Radiologist's impression: [facility] [address] [place] [address]. [place] [address] XRay Report Signed Patient: Shaniqau Islas Unit #: [id number] : 1955 Age/Sex: 65 / F ADM Date: 12/05/20 Loc: ER Room/Bed: Attending Dr: Ordering Provider/Ordering MD: Renetta Zhang MD Date of Service: 12/05/20 Procedure(s): XR lumbar spine 2-3V* [id number] Accession Number(s): [id number] Report Number: [id number] PROCEDURE INFORMATION: Exam: XR Lumbosacral Spine Exam date and time: 12/05/2020 11:14 PM Age: 65 years old Clinical indication: Injury or trauma; Blunt trauma (contusions or hematomas); Injury details: Fall down bleachers x yesterday. Pain in lower back TECHNIQUE: Imaging protocol: XR of the lumbosacral spine. Views: 2 or 3 views. COMPARISON: CT abdomen pelvis w con* [id number] 02/17/2020 2:43 PM FINDINGS: Bones/joints: No fracture or dislocation. Loss of the normal lordosis. Moderate degenerative changes of the lower lumbar spine. Soft tissues: Unremarkable. XR/XR lumbar spine 2-3V* [id number] IMPRESSION: No acute findings. xr r ankle: Radiologist's impression: [facility] [address] [place] [address]. [place] [address] XRay Report Signed Patient: Shaniqua Islas Unit #: [id number] : 1955 Age/Sex: 65 / F ADM Date: 12/05/20 Loc: ER Room/Bed: Attending Dr: Ordering Provider/Ordering MD: Renetta Zhang MD Date of Service: 12/05/20 Procedure(s): XR ankle RT min 3V* [id number] Accession Number(s): [id number] Report Number: [id number] PROCEDURE INFORMATION: Exam: XR Right Ankle Exam date and time: 12/05/2020 11:14 PM Age: 65 years old Clinical indication: Injury or trauma; Blunt trauma; Injury details: Fall x yesterday on right side. Pain in right ankle TECHNIQUE: Imaging protocol: XR Right ankle. Views: 3 or more views. COMPARISON: No relevant prior studies available. FINDINGS: Bones/joints: No acute displaced fracture or dislocation. Prominent calcaneal enthesopathy. [id number]-px-bfcclkno osteoarthritis throughout the midfoot. Soft tissues: Normal. Vasculature: Extensive systemic vascular calcification. XR/XR ankle RT min 3V* [id number] IMPRESSION: No acute displaced fracture or dislocation. xr r hip: Radiologist's impression: [facility] [address] [place] [address] XRay Report Signed Patient: Shaniqua Islas Unit #: [id number] : 1955 Age/Sex: 65 / F ADM Date: 12/05/20 Loc: ER Room/Bed: Attending Dr: Ordering Provider/Ordering MD: Renetta Zhang MD Date of Service: 12/05/20 Procedure(s): XR hip RT 2-3V wo/w pel* [id number] Accession Number(s): [id number] Report Number: [id number] PROCEDURE INFORMATION: Exam: XR Right Hip Exam date and time: 12/05/2020 11:14 PM Age: 65 years old Clinical indication: Injury or trauma; Blunt trauma (contusions or hematomas); Injury details: Fall x yesterday on right side. Pain in right hip TECHNIQUE: Imaging protocol: XR Right hip. Views: 1 view hip with pelvis when performed. COMPARISON: CT abdomen pelvis w con* [id number] 02/17/2020 2:43 PM FINDINGS: Bones/joints: No acute displaced fracture or dislocation. Soft tissues: Unremarkable. XR/XR hip RT 2-3V wo/w pel* [id number] IMPRESSION: No acute findings. xr r knee: Radiologist's impression: [address] [place] [address] XRay Report Signed Patient: Shaniqua Islas Unit #: [id number] : 1955 Age/Sex: 65 / F ADM Date: 12/05/20 Loc: ER Room/Bed: Attending Dr: Ordering Provider/Ordering MD: Renetta Zhang MD Date of Service: 12/05/20 Procedure(s): XR knee RT 3V* [id number] Accession Number(s): [id number] Report Number: [id number] PROCEDURE INFORMATION: Exam: XR Right Knee Exam date and time: 12/05/2020 11:21 PM Age: 65 years old Clinical indication: Injury or trauma; Blunt trauma; Injury details: PT fall x yesterday. Pain in right knee TECHNIQUE: Imaging protocol: XR Right knee. Views: 3 views. COMPARISON: No relevant prior studies available. FINDINGS: Bones/joints: No acute displaced fracture or dislocation. Severe tricompartmental osteoarthritis with marginal osteophytosis. Large joint effusion. Soft tissues: Normal. Vasculature: Extensive systemic vascular calcification. XR/XR knee RT 3V* [id number] IMPRESSION: 1. No acute displaced fracture or dislocation. 2. Large nonspecific joint effusion. Discharge Plan Discharge Patient Disposition: Home Clinical Impression: Fall Right knee injury Qualifiers: Encounter type: initial encounter Qualified Code(s): S89.91XA - Unspecified injury of right lower leg, initial encounter Condition: Stable Prescriptions: New hydrocodone-acetaminophen 5-325 mg tablet 1 tab PO Q6H PRN (Reason: pain) Qty: 14 RF: 0 No Action zinc 50 mg tablet 50 mg PO DAILY RF: 0 coenzyme Q10 [CoQ-10] 100 mg capsule 300 mg PO DAILY RF: 0 cetirizine [Zyrtec] 10 mg tablet 10 mg PO DAILY RF: 0 triamcinolone acetonide 1 applic INTRANASAL QID PRN (Reason: Rash) RF: 0 magnesium oxide 400 mg (241.3 mg magnesium) tablet 400 mg PO DAILY RF: 0 Januvia 50 mg tablet 50 mg PO DAILY Qty: 90 RF: 1 ketoconazole 2 % cream 1 applic TOPICAL DAILY RF: 0 (DME) Diabetic Shoes with 3 pair of inserts See Rx Instructions .ROUTE .MEDSUPPLY Qty: 1 RF: 0 aspirin [Adult Low Dose Aspirin] 81 mg tablet,delayed release (DR/EC) 81 mg PO DAILY RF: 0 hydrochlorothiazide 12.5 mg tablet 12.5 mg PO QAM Qty: 30 RF: 0 (DME) CPAP mask and tubing See Rx Instructions .Route .MEDSUPPLY Qty: 1 RF: 0 allopurinol 300 mg tablet 300 mg PO DAILY Qty: 90 RF: 1 cornelio (Zingiber officinalis) 500 mg capsule 500 mg PO DAILY RF: 0 hydrocortisone [Anusol-HC] 2.5 % cream with perineal applicator 1 applic NE TID PRN (Reason: hemorrhoids) Qty: 30 RF: 2 acetylcarnitin HCl-a lipoic ac 400-200 mg capsule 1 cap PO DAILY RF: 0 glimepiride 2 mg tablet 2 mg PO DAILY Qty: 90 RF: 1 pantoprazole [Protonix] 40 mg tablet,delayed release (DR/EC) 40 mg PO DAILY Qty: 90 RF: 1 levothyroxine [Synthroid] 150 mcg tablet 150 mcg PO DAILY Qty: 90 RF: 1 ezetimibe 10 mg tablet 10 mg PO DAILY Qty: 90 RF: 1 pyridoxine (vitamin B6) 25 mg Tablet 25 mg PO DAILY RF: 0 cholecalciferol (vitamin D3) 1,250 mcg (50,000 unit) capsule 5,000 unit PO DAILY RF: 0 Tart Abbasi Extract 1,000 mg Capsule 1,000 mg PO DAILY RF: 0 cyanocobalamin (vitamin B-12) [Vitamin B-12] 5,000 mcg Tablet, Sublingual 5,000 mcg SUBLINGUAL DAILY RF: 0 Advair Diskus 250-50 mcg/dose blister with device 1 inh INHALATION BID RF: 0 Discharge Orders: Discharge ED (Routine); Ordered 12/06/20 Ordered By: Renetta Zhang Referrals: Rizwana Stokes MD [Physician] - 1-3 days Paradise Gonzalez DO [Primary Care Provider] - Discharge Diet: Advance as tolerated Discharge Activity: Resume usual activity Patient Instructions: Knee Pain (ED) Coding Level of Care Code ED Supervisor Paper Machine for Chg Fwd Exam Comprehensive
[2020-12-06 00:09] VITALS: BP 156/72; RESP 18; O2SAT 97
[2020-12-06] MEDS: HYDROcodone-acetaminophen 7.5-325 mg Tablet 1 TAB PO (00:22)
[2020-12-06 01:08] VITALS: BP 156/72; RESP 20
--- NOTE | 2020-12-06 10:33 | DCPLANNER ---
manager site had message to schedule a follow up appointment for patient with ortho. manager site called the ortho clinic, spoke with Susanna, gave clinic patients information. manager site was told that patients information would be printed and reviewed. Clinic will call patient with appointment information.
--- NOTE | 2020-12-07 15:09 | DCPLANNER ---
Patient has a follow up appointment scheduled for Thursday, December 10, 2020 at 8:[address] Stokes. Clinic will call patient with appointment information.
--- NOTE | 2020-12-14 14:01 | DCPLANNER ---
Patient had a follow up appointment scheduled for 12.10.20 with ortho - patient did attend appointment.
== END 2020-12-06 00:50 | disposition home or self-care (01) ==
PROVIDERS: Emergency Provider Emergency Medicine; PCP Family Medicine
DX: S89.91XA Unspecified injury of right lower leg, initial encounter (principal); Z79.82 Long term (current) use of aspirin; I12.9 Hypertensive chronic kidney disease with stage 1 through stage 4 chronic kidney disease, or unspecified chronic kidney disease; E11.22 Type 2 diabetes mellitus with diabetic chronic kidney disease; N18.30 Chronic kidney disease, stage 3 unspecified; W19.XXXA Unspecified fall, initial encounter
CPT/HCPCS: 29530; 72100; 73502; 73562; 73610; 99283; E0114

== ENCOUNTER 2020-12-21 15:11 | Outpatient (CLI) | payer BC, SELFPAY ==
--- NOTE | 2020-12-21 15:27 | CT_ITS ---
WS: [id number] CT RIGHT KNEE, NONCONTRAST WITH 3-D IMAGING. HISTORY: S89.91XA - Unspecified injury of right lower leg, initial... Technique: All CT scans at [facility] use at least one of these dose optimization techniq ues: automated exposure control; mA and/or kV adjustment per patient size (includes targeted exams wh ere dose is matched to clinical indication); or iterative reconstruction. DLP: 1304.28 mGycm COMPARISON: Knee radiograph 12/05/2020. No acute fractures are identified. Severe tricompartment changes of osteoarthritis. There are large h ypertrophic osteophytes at all joint spaces. Most significant narrowing involves the medial compartme nt. Subchondral cystic changes and sclerosis. Chondrocalcinosis in all 3 compartments. Osteophytes ex tend into the intercondylar notch. Moderate atherosclerotic plaque within the popliteal artery. CT/CT knee RT wo con* [id number] IMPRESSION: 1. Severe tricompartment osteoarthritic changes with large hypertrophic osteop hytes in all 3 compartments. 2. No fracture.
== END 2020-12-21 15:12 | disposition home or self-care (01) ==
LOC: RADWPI 15:14
PROVIDERS: PCP Family Medicine; Visit Provider Specialist
DX: S89.91XA Unspecified injury of right lower leg, initial encounter (principal); X58.XXXA Exposure to other specified factors, initial encounter
CPT/HCPCS: 73700

== ENCOUNTER 2021-02-28 16:31 | Outpatient (CLI) | payer BC, SELFPAY | END 2021-02-28 16:32 | disposition home or self-care (01) | LOC: LAB 16:32 | PROVIDERS: PCP Family Medicine; Visit Provider Family Medicine | DX: E03.9 Hypothyroidism, unspecified (principal) | CPT/HCPCS: 84443 ==

== ENCOUNTER → 2021-03-12 10:32 | Outpatient (BNVA) | payer MEDICARE, SELFPAY | PROVIDERS: PCP Family Medicine; Visit Provider Family Medicine | DX: E66.01 Morbid (severe) obesity due to excess calories (principal); Z68.42 Body mass index [BMI] 45.0-49.9, adult; N18.31 Chronic kidney disease, stage 3a; E11.9 Type 2 diabetes mellitus without complications; E78.5 Hyperlipidemia, unspecified; E03.9 Hypothyroidism, unspecified; I73.9 Peripheral vascular disease, unspecified | CPT/HCPCS: 80053; 80061; 83036; 84443 ==

== ENCOUNTER 2021-04-25 15:43 | Outpatient (CLI) | payer MEDICARE, SELFPAY ==
--- NOTE | 2021-04-25 | USCV_ITS ---
Ablation Guidance Shaniqua Islas Age: 66 Gender: F : 1955 Exam Date: 04/25/2021 16:11 Ordering Phys: Maricruz Robledo MD ([email or web address]) Technologist: Jennifer Aguilar [place] [facility] [place] Indication: nonrhuematic aortic stenosis BP: 130 / 75 HR: 84 Rhythm: Sinus Technical Quality: Adequate MEASUREMENTS (Male / Female) Normal Values 2D ECHO LV Diastolic Diameter PLAX 3.7 cm 4.2 - 5.9 / 3.9 - 5.3 cm LV Systolic Diameter PLAX 2.8 cm IVS Diastolic Thickness 1.3 cm 0.6 - 1.0 / 0.6 - 0.9 cm IVS Systolic Thickness 1.6 cm LVPW Diastolic Thickness 1.5 cm 0.6 - 1.0 / 0.6 - 0.9 cm LVPW Systolic Thickness 1.7 cm RV Chamber Size 2.5 cm LVOT Diameter 2.0 cm LV Ejection Fraction 2D Teich 51.7 % LV Ejection Fraction MOD 2C 39.0 % LV Ejection Fraction 2C AL 45.4 % LA Diameter 3.1 cm LA Width 3.4 cm LA Height 4.5 cm RA Width 3.0 cm RA Height 4.1 cm Aorta at Sinotubular Diameter 2.1 cm DOPPLER AV Peak Velocity 214.0 cm/s LVOT Peak Velocity 83.0 cm/s AV Area Cont Eq vti 1.5 cm squared AV Area Cont Eq pk 1.2 cm squared MV Area PHT 5.0 cm squared Mitral E to A Ratio 0.5 MV E' Velocity 58.0 cm/s TR Peak Velocity 263.0 cm/s TR Peak Gradient 27.7 mmHg Right Atrial Pressure 8.0 mmHg Pulmonary Artery Systolic Pressu 35.7 mmHg PV Peak Velocity 87.0 cm/s RV Acceleration Time 0.1 s RV Ejection Time 0.3 s RV AcT/ET 0.5 FINDINGS Left Ventricle Normal left ventricular size, systolic function and mildly increased wall thickness, with no regional wall motion abnormalities. Left ventricular ejection fraction is estimated at 65%. Grade I diastolic dysfunction (abnormal relaxation filling pattern), normal to mildly elevated filling pressures. Right Ventricle Normal right ventricular size and systolic function. Right ventricular systolic pressure 35.7 mmHg. Right Atrium Normal right atrial size. Right atrial pressure estimated at 8 mm Hg. Left Atrium Mildly increased left atrial size. Mitral Valve Mild mitral annular calcification. Mildly thickened mitral valve. No mitral valve stenosis. Aortic Valve Moderately to markedly thickened and calcified trileaflet aortic valve. Mild aortic valve stenosis, peak velocity 2.4 m/sec, peak gradient 23 mm Hg, mean gradient 10 mmHg, VINI 1.5 cm squared. Trace aortic valve regurgitation. Tricuspid Valve No tricuspid valve stenosis. No tricuspid valve stenosis. Trace tricuspid valve regurgitation. Pulmonic Valve Pulmonic valve not well visualized. No pulmonary valve stenosis. No significant pulmonary valve regurgitation. Pericardium No pericardial effusion. Aorta Normal size aortic root and proximal ascending aorta. CONCLUSIONS 1. Normal left ventricular size, systolic function and mildly increased wall thickness, with no regional wall motion abnormalities. Left ventricular ejection fraction is estimated at 65%. Grade I diastolic dysfunction (abnormal relaxation filling pattern), normal to mildly elevated filling pressures. 2. Moderately to markedly thickened and calcified trileaflet aortic valve. Mild aortic valve stenosis, peak velocity 2.4 m/sec, peak gradient 23 mm Hg, mean gradient 10 mmHg, VINI 1.5 cm squared. 3. Pulmonary artery pressure estimated at 36 mm Hg. 4. When compared to previous study dated 05/16/20 there may not have been any significant change. Maricruz Robledo MD (Electronically Signed) Final Date: 28 April 2021 20:15 S
== END 2021-04-25 15:44 | disposition home or self-care (01) ==
LOC: RAD 15:45
PROVIDERS: PCP Family Medicine; Visit Provider Internal Medicine Cardiovascular Disease
DX: I35.0 Nonrheumatic aortic (valve) stenosis (principal)
CPT/HCPCS: C8929

== ENCOUNTER 2021-05-13 06:05 | Emergency (ER) | payer MEDICARE, SELFPAY ==
[2021-05-13] VITALS (8 sets, daily range): BP systolic 104–144; BP diastolic 59–88; PULSE 72–91; RESP 17–19; TEMP 37.1–38.5; O2SAT 93–96; BMI 47.7
--- NOTE | 2021-05-13 06:33 | ECG_ITS ---
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 Measurements Intervals [place] Rate: 84 P: 55 CA: 151 QRS: 61 QRSD: 140 T: 35 QT: 377 QTc: 446 Interpretive Statements SINUS RHYTHM RIGHT BUNDLE BRANCH BLOCK [120+ ms QRS DURATION, UPRIGHT V1, 40+ ms S IN I/aVL/V4/V5/V6] Compared to ECG 02/16/2020 10:50:23 No significant changes Electronically Signed On 05-13-2021 23:42:29 CDT by Derek Ceron M.D. [email or web address] [email or web address]/[id number] f
--- NOTE | 2021-05-13 06:33 | XR_ITS ---
WS: [id number] PORTABLE CHEST HISTORY: chest pain, fever COMPARISON: 09/22/2017 Lungs are clear and well expanded. No pleural effusion or pneumothorax. Cardiac size: Cardiac silhouette is enlarged on the basis of lordotic positioning. Mediastinum/Aorta: Normal mediastinum. No osseous abnormality seen. XR/XR chest 1V portable [id number] IMPRESSION: Unremarkable portable chest.
[2021-05-13] MEDS: aspirin 81 mg Chew Tablet 324 MG PO (06:48)
[2021-05-13] MEDS: acetaminophen 325 mg Tablet 650 MG PO (06:48)
--- NOTE | 2021-05-13 07:25 | ED_ITS ---
HPI - Chest Pain General: Chief Complaint: Chest Pain Stated Complaint: CP Time Seen by Provider: 05/13/21 06:13 History of Present Illness: HPI narrative: 66-year-old female presents emergency room with complaint of weakness and chest discomfort. Patient states she got up this morning and went to go to the bathroom had some chest discomfort that she rated at a 3 of 10., lsted for a few seconds at most, it resolved completely. She felt like she was going to have a syncopal episode but never did pass out. Couple weeks ago she fell while she was traveling in [place] she has a bruise over her right eye with some ecchymosis around the eye. she was evaluated locally. She has known moderate aortic stenosis based on echocardiogram done 1 year ago. Patient is diabetic for which she takes oral antihyperglycemic's.She has no known coronary artery disease. Patient does have a temp of 101.3 on arrival. She denies any dysuria urgency or frequency denies any abdominal pain or cough. Patient has a history of hypertension her only antihypertensive listed is hydrochlorothiazide. Patient also reports red and inflamed second left toe. She has a small ulcer at the tip she had been seeing Dr. Treadwell for this she last seen him 2 months ago. It seems to have been getting worse according to her report. MD complaint: chest discomfort Onset (ago): hour(s) Prior episodes: No Onset: during exertion Pain location: left chest Pain radiation: none Severity: mild Quality: heaviness Associated symptoms: Deny abdominal pain, diaphoresis, dyspnea, fever(s), leg edema, nausea, palpitations, sense of impending doom, syncope or vomiting Treatment prior to arrival: none Review of Systems Const: Denies: fever(s) or diaphoresis ENMT: Denies: throat pain, ear or mastoid pain, nasal discharge or nasal c ongestion Card: Denies: palpitations or syncope Resp: Denies: dyspnea GI: Denies: abdominal pain, nausea or vomiting : Denies: flank pain, difficulty voiding, dysuria, urinary frequency or urinary urgency Skin/Breast: Denies: rash or pruritus [facility] ED PFSH: Medical History Basal cell carcinoma CKD (chronic kidney disease), stage III Dyslipidemia GERD (gastroesophageal reflux disease) History of asthma History of cardiac murmur History of colon polyps Hx of gout Hx of sleep apnea Hypertension Hypothyroidism Shoulder pain, left Squamous cell carcinoma Type 2 diabetes mellitus, without long-term current use of insulin Ventral hernia Surgical History History of arthroscopic knee surgery Right 2x History of colonoscopy (~10/04/19) Cecal and sigmoid colon polyp, mild diverticulosis History of esophagogastroduodenoscopy (EGD) (~10/04/19) Gastric polyp History of incisional hernia repair (02/20/20) Family History Father Anesthesia complication Other Heart disease Denies family history of Bleeding disorder Social History Alcohol intake: never Lives independently: Yes Household members: spouse Current occupational status: employed History of recent travel: No Physical Exam Const: COMMON NORMALS: no acute distress GENERAL APPEARANCE: cooperative and comfortable ORIENTATION/CONSCIOUSNESS: Yes awake, Yes oriented to person, Yes oriented to place and Yes oriented to time HENMT: COMMON NORMALS: normocephalic, atraumatic and hearing grossly normal bilaterally HEAD & SCALP: normocephalic and atraumatic Neck/C-Spine: COMMON NORMALS: no JVD Resp: COMMON NORMALS: normal respiratory effort, No retractions, No use of accessory muscles and clear to auscultation bilaterally AUSCULTATION: clear to auscultation bilaterally Cardio: COMMON NORMALS: no JVD, regular rate, regular rhythm and No murmurs present (Cardio) RATE: regular rate RHYTHM: regular rhythm GI: COMMON NORMALS: Soft to palpation and No hepatosplenomegaly present AUSCULTATION: Yes normoactive bowel sounds PALPATION: Yes Soft to palpation, No Tenderness to palpation present (GI), No Guarding due to palpation present (GI) and Yes No hepatosplenomegaly present Extremity: COMMON NORMALS: normal to inspection, capillary refill normal, no clubbing, cyanosis or edema, no calf tenderness and no pedal edema OTHER: Erythema and mild swelling of the second left toe no active drainage. Small ulcer at the tip of the toe. Neuro: SENSORIUM/ORIENTATION: Yes oriented to person, Yes oriented to place and Yes oriented to time Skin: COMMON NORMALS: no rashes or lesions noted GENERAL SKIN EXAM: no rashes or lesions noted Course Vital Signs: Vital signs: Vital Signs Temperature 99.0 F 05/13/21 12:10 Pulse Rate 73 05/13/21 12:10 Respiratory Rate 17 05/13/21 12:10 Blood Pressure 134/86 05/13/21 12:10 Pulse Oximetry 96 05/13/21 12:10 MDM - Chest Pain MDM Narrative: Medical decision making narrative: Labs and imaging reviewed there is no evidence of osteomyelitis in the toe. Troponin negative.Chest x-ray is unremarkable EKG does not show any acute changes. UA was contaminated showed more squamous cells than whites patient is asymptomatic of any UTI symptoms. Her fevers resolved she is feeling much better she would prefer to go home discussed risks and benefits of the started on Levaquin for toe which would also cover any potential urinary tract symptoms. We will have her set up for Lexiscan sestamibi stress test and follow-up with podiatry on her toe. If she has any worsening or changes symptoms or recurrence of symptoms she should return. Discussed risk benefit patient is feeling much better she would prefer to go home for now. Also encouraged to return if she has any fever. Lab Data: Labs: Lab Results 05/13/21 05/13/21 05/13/21 07:37 08:39 08:39 WBC 11.6 10^3/uL H 10 ^3/uL (4.0-10.0) RBC 4.17 10^6/uL 10^6 /uL (4.1-5.3) Hgb 12.4 g/dL g/dL (11.5-15.3) Hct 38.1 % % (37.0-47.0) MCV 91.4 fl fl (81-99) MCH 29.7 pg pg (28.0-34.0) MCHC 32.5 g/dL g/dL (30.0-36.0) RDW 14.0 % % (12.1-15.1) Plt Count 196 10^3/cmm 10^3 /cmm (130-400) MPV 10.1 fL fL (7.4-10.4) Neut % (Auto) 87.8 % % Lymph % (Auto) 5.8 % % [place] % (Auto) 5.1 % % Eos % (Auto) 0.2 % % Baso % (Auto) 0.6 % % Neut # (Auto) 10.14 10^3/uL H 1 0^3/uL (1.8-7.7) Lymph # (Auto) 0.7 10^3/uL L 10^ 3/uL (0.8-4.8) [place] # (Auto) 0.6 10^3/uL 10^3/ uL (0.2-0.9) Eos # (Auto) 0.0 10^3/uL 10^3/ uL (0.0-0.8) Baso # (Auto) 0.1 10^3/uL 10^3/ uL (0.0-0.1) Nucleated RBC % (a uto) 0 % % Nucleated RBCs # 0.0 /100WBC /100W BC Sodium 132 mmol/L L mmol /L (136-145) Potassium 4.9 mmol/L mmol/L (3.5-5.1) Chloride 95 mmol/L L mmol/ L (98-107) Carbon Dioxide 24 mmol/L mmol/L (22-29) Anion Gap 17.9 (5-19) BUN 21 mg/dL mg/dL (8-23) Creatinine 1.2 mg/dL H mg/dL (0.5-0.9) GFR Calculation 45.1 mL/min L mL/ min (90-130) Glucose 220 mg/dL H mg/dL (65-115) Calculated Osmolal ity 284 mOsm/kg L mOs m/kg (285-295) Lactic Acid Calcium 9.1 mg/dL mg/dL (8.5-10.5) Total Bilirubin 0.4 mg/dL mg/dL (0.15-1.2) AST 22 U/L U/L (0-32) ALT 16 U/L U/L (0-33) Alkaline Phosphata se 65 IU/L IU/L (35-105) Creatine Kinase 70 U/L U/L (26-192) Troponin T Baselin e Troponin T 120 Min wilberto Delta Troponin T Total Protein 6.5 g/dL L g/dL (6.6-8.7) Albumin 3.8 g/dL g/dL (3.5-5.2) Globulin 2.7 g/dL g/dL (1.3-4.6) Lipase 32 U/L U/L (13-60) Urine Color Dark yellow (Yellow) Urine Appearance Cloudy (CLEAR) Urine pH 5 (5-7) Ur Specific Gravit y 1.015 (1.005-1.030) Urine Protein Trace (Negative) Urine Glucose (UA) Norm (Normal) Urine Ketones Negative (Negative) Urine Blood Neg (Negative) Urine Nitrate Positive H (Negative) Urine Bilirubin 1+ H (Negative) Urine Urobilinogen Norm mg/dL mg/dL (Negative) Ur Leukocyte Amita ase Negative (Negative) Urine RBC 0-4 /hpf H /hpf (0-2) Urine WBC 15-25 /hpf H /hpf (0-5) Ur Squamous Epith Cells 25-40 /hpf H /hpf (0-5) Amorphous Sediment Not Reportable Urine Bacteria 3+ /hpf H /hpf (NONE) Nasal/Oral COVID-1 9 PCR SARS-CoV-2 Ag (Rap id) 05/13/21 05/13/21 05/13/21 08:39 08:39 08:39 WBC RBC Hgb Hct MCV MCH MCHC RDW Plt Count MPV Neut % (Auto) Lymph % (Auto) [place] % (Auto) Eos % (Auto) Baso % (Auto) Neut # (Auto) Lymph # (Auto) [place] # (Auto) Eos # (Auto) Baso # (Auto) Nucleated RBC % (a uto) Nucleated RBCs # Sodium Potassium Chloride Carbon Dioxide Anion Gap BUN Creatinine GFR Calculation Glucose Calculated Osmolal ity Lactic Acid 0.9 mmol/L mmol/L (0.5-2.2) Calcium Total Bilirubin AST ALT Alkaline Phosphata se Creatine Kinase Troponin T Baselin e 27 ng/L H ng/L (0-10) Troponin T 120 Min wilberto Delta Troponin T Total Protein Albumin Globulin Lipase Urine Color Urine Appearance Urine pH Ur Specific Gravit y Urine Protein Urine Glucose (UA) Urine Ketones Urine Blood Urine Nitrate Urine Bilirubin Urine Urobilinogen Ur Leukocyte Amita ase Urine RBC Urine WBC Ur Squamous Epith Cells Amorphous Sediment Urine Bacteria Nasal/Oral COVID-1 9 PCR Not detected SARS-CoV-2 Ag (Rap id) 05/13/21 05/13/21 08:39 10:35 WBC RBC Hgb Hct MCV MCH MCHC RDW Plt Count MPV Neut % (Auto) Lymph % (Auto) [place] % (Auto) Eos % (Auto) Baso % (Auto) Neut # (Auto) Lymph # (Auto) [place] # (Auto) Eos # (Auto) Baso # (Auto) Nucleated RBC % (a uto) Nucleated RBCs # Sodium Potassium Chloride Carbon Dioxide Anion Gap BUN Creatinine GFR Calculation Glucose Calculated Osmolal ity Lactic Acid Calcium Total Bilirubin AST ALT Alkaline Phosphata se Creatine Kinase Troponin T Baselin e Troponin T 120 Min wilberto 20.79 ng/L H ng/L (0-10) Delta Troponin T -6.21 ABS# L ABS# (0-10) Total Protein Albumin Globulin Lipase Urine Color Urine Appearance Urine pH Ur Specific Gravit y Urine Protein Urine Glucose (UA) Urine Ketones Urine Blood Urine Nitrate Urine Bilirubin Urine Urobilinogen Ur Leukocyte Amita ase Urine RBC Urine WBC Ur Squamous Epith Cells Amorphous Sediment Urine Bacteria Nasal/Oral COVID-1 9 PCR SARS-CoV-2 Ag (Rap id) Negative (Negative) Discharge Plan Discharge Patient Disposition: Home Clinical Impression: Atypical chest pain, Cystitis, Diabetic foot ulcer Condition: Stable Prescriptions: New levofloxacin 750 mg tablet 750 mg PO DAILY 7 Days RF: 0 No Action zinc 50 mg tablet 50 mg PO DAILY RF: 0 coenzyme Q10 [CoQ-10] 100 mg capsule 300 mg PO DAILY RF: 0 cetirizine [Zyrtec] 10 mg tablet 10 mg PO DAILY RF: 0 magnesium oxide 400 mg (241.3 mg magnesium) tablet 400 mg PO DAILY RF: 0 Januvia 50 mg tablet 50 mg PO DAILY Qty: 90 RF: 1 ketoconazole 2 % cream 1 applic TOPICAL DAILY RF: 0 (DME) Diabetic Shoes with 3 pair of inserts See Rx Instructions .ROUTE .MEDSUPPLY Qty: 1 RF: 0 aspirin [Adult Low Dose Aspirin] 81 mg tablet,delayed release (DR/EC) 81 mg PO DAILY RF: 0 (DME) CPAP mask and tubing See Rx Instructions .Route .MEDSUPPLY Qty: 1 RF: 0 allopurinol 300 mg tablet 300 mg PO DAILY Qty: 90 RF: 1 thiamine HCl (vitamin B1) PO RF: 0 cornelio (Zingiber officinalis) 500 mg capsule 500 mg PO DAILY RF: 0 acetylcarnitin HCl-a lipoic ac 400-200 mg capsule 1 cap PO DAILY RF: 0 levothyroxine [Synthroid] 150 mcg tablet 150 mcg PO DAILY Qty: 90 RF: 1 ezetimibe 10 mg tablet 10 mg PO DAILY Qty: 90 RF: 1 hydrochlorothiazide 12.5 mg tablet 12.5 mg PO QAM Qty: 90 RF: 1 glimepiride 2 mg tablet 2 mg PO DAILY 90 Days Qty: 90 RF: 1 pantoprazole [Protonix] 40 mg tablet,delayed release (DR/EC) 40 mg PO DAILY Qty: 90 RF: 1 pyridoxine (vitamin B6) 25 mg Tablet 25 mg PO DAILY RF: 0 cholecalciferol (vitamin D3) 1,250 mcg (50,000 unit) capsule 5,000 unit PO DAILY RF: 0 Tart Abbasi Extract 1,000 mg Capsule 1,000 mg PO DAILY RF: 0 cyanocobalamin (vitamin B-12) [Vitamin B-12] 5,000 mcg Tablet, Sublingual 5,000 mcg SUBLINGUAL DAILY RF: 0 Advair Diskus 250-50 mcg/dose blister with device 1 inh INHALATION BID 90 Days Qty: 180 RF: 0 Discharge Orders: Discharge ED (Routine); Ordered 05/13/21 Ordered By: Chi Esparza Referrals: Paradise Gonzalez DO [Primary Care Provider] - Discharge Diet: Usual diet Discharge Activity: Limit activity as instructed Patient Instructions: Opioid Safety Activity Restrictions/Additional Instructions: No strenuous activity. Case management will call to make arrangements for a Lexiscan sestamibi stress test. Start oral antibiotics for the bladder infection and the toe infection. biodiesel division manager will also make arrangements for follow-up with podiatry on these ulcer on the left second toe Coding Level of Care Code ED [employer] for Lucrecia Fernandes
--- NOTE | 2021-05-13 08:33 | ECG_ITS ---
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 Measurements Intervals [place] Rate: 81 P: 8 AR: 137 QRS: 66 QRSD: 138 T: 35 QT: 397 QTc: 463 Interpretive Statements SINUS RHYTHM RIGHT BUNDLE BRANCH BLOCK [120+ ms QRS DURATION, UPRIGHT V1, 40+ ms S IN I/aVL/V4/V5/V6] Compared to ECG 02/16/2020 10:50:23 No significant changes Electronically Signed On 05-13-2021 23:53:45 CDT by Derek Ceron M.D. [id number]
[2021-05-13 08:51] LABS: Basophils # 0.1 10^3/uL (0.0-0.1); Basophils % 0.6 %; Eosinophils % 0.2 %; Hematocrit 38.1 % (37.0-47.0); Hemoglobin 12.4 g/dL (11.5-15.3); Lymphocytes # 0.7 10^3/uL (0.8-4.8); Lymphocytes % 5.8 %; Mean Corpuscular HGB Conc 32.5 g/dL (30.0-36.0); Mean Corpuscular Hemoglobin 29.7 pg (28.0-34.0); Mean Corpuscular Volume 91.4 fl (81-99); Mean Platelet Volume 10.1 fL (7.4-10.4); Monocytes # 0.6 10^3/uL (0.2-0.9); Monocytes % 5.1 %; Neutrophils # 10.14 10^3/uL (1.8-7.7); Neutrophils % 87.8 %; Nucleated Red Blood Cells % 0 %; Platelet Count 196 10^3/cmm (130-400); Red Blood Count 4.17 10^6/uL (4.1-5.3); White Blood Count 11.6 10^3/uL (4.0-10.0)
[2021-05-13 08:54] LABS: Blood Urine Neg (Negative); Glucose Urine UA Norm (Normal); Ketones Urine Negative (Negative); Protein Urine Trace (Negative); Specific Gravity, Urine 1.015 (1.005-1.030); Urine Appearance Cloudy (CLEAR); Urine Color Dark Yellow (Yellow); pH Urine 5 (5-7)
[2021-05-13 08:55] LABS: Add Urine Culture? No; Add Urine Microscopic? YES; Bacteria Urine 3+ /hpf; Bilirubin Urine 1+ (Negative); Leukocyte Esterase Urine Negative (Negative); Nitrate Urine Positive (Negative); RBC Urine 0-4 /hpf (0-2); Squamous Epithelial Cell Urine 25-40 /hpf (0-5); Urobilinogen Urine Norm (Negative); WBC Urine 15-25 /hpf (0-5)
--- NOTE | 2021-05-13 08:56 | XR_ITS ---
WS: [id number] Exam: XR toe LT min 2V [id number] Date/Time of Exam: 05/13/2021 8:56 AM Reason For Exam: 2nd toe No acute fracture or dislocation. Soft tissue swelling of the second toe. No sign of bone destruction . 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 No soft tissue foreign bodies are seen. XR/XR toe LT min 2V [id number] IMPRESSION: 1. Soft tissue swelling of the second toe but no fracture or bone destruction n oted. 2. Advanced degenerative changes at the first MP joint.
[2021-05-13 09:12] LABS: Lactic Sepsis W/Reflex 0.9 mmol/L (0.5-2.2)
[2021-05-13 09:13] LABS: Alanine Aminotransferase 16 U/L (0-33); Albumin Level 3.8 g/dL (3.5-5.2); Alkaline Phosphatase 65 IU/L (35-105); Anion Gap 17.9 (5-19); Aspartate Amino Transferase 22 U/L (0-32); Blood Urea Nitrogen 21 mg/dL (8-23); Calcium 9.1 mg/dL (8.5-10.5); Carbon Dioxide 24 mmol/L (22-29); Chloride 95 mmol/L (98-107); Creatine Phosphokinase 70 U/L (26-192); Globulin 2.7 g/dL (1.3-4.6); Glomerular Filtration Rate 45.1 mL/min (90-130); Glucose 220 mg/dL (65-115); Lipase 32 U/L (13-60); Osmolality Calculated 284 mOsm/kg (285-295); Potassium 4.9 mmol/L (3.5-5.1); Sodium 132 mmol/L (136-145); Total Bilirubin 0.4 mg/dL (0.15-1.2); Total Protein 6.5 g/dL (6.6-8.7)
[2021-05-13 09:22] LABS: Troponin(5th) Baseline 27 ng/L (0-10)
--- NOTE | 2021-05-13 09:43 | PC.NURSE ---
Pt is on clinical nutrition manager.
[2021-05-13 09:52] LABS: SARS Covid-2 Antigen Negative (Negative)
[2021-05-13] MEDS: cefTRIAXone 1,000 MG in sodium chloride 0.9% (plus) 50 ML 100 MG IV (10:39)
[2021-05-13 11:31] LABS: Troponin 5 2HR 20.79 ng/L (0-10)
[2021-05-13 11:33] LABS: Troponin 5 2HR Delta -6.21 ABS# (0-10)
--- NOTE | 2021-05-14 10:29 | PC.SOCIAL ---
Addendum entered by Sandee Curiel 05/15/21 13:43: imaging account manager also had message to schedule an outpatient stress test for patient. imaging account manager faxed signed order to centralized scheduling, who will call patient with appointment information. Original Note: Referral for Ortho Dr Treadwell per ED provider Dr Esparza called to Karoline at clinic. She will need to discuss with Dr Treadwell since he is scheduled a few months and follow up on this one.
[2021-05-15 11:05] LABS: Coronavirus Test Green County Not Detected
--- NOTE | 2021-05-15 16:44 | PC.NURSE ---
Informed pt via phone call of Neg COVID test
--- NOTE | 2021-05-16 13:05 | PC.NURSE ---
1 of 2 bottles positive from Staph aureus, Dr Esparza notified of critical findings.
--- NOTE | 2021-05-23 14:49 | DCPLANNER ---
Patient had a follow up appointment scheduled for 05.17.[address] Treadwell at [facility] - patient did attend appointment.
--- NOTE | 2021-05-29 13:36 | DCPLANNER ---
Patient has an outpatient stress test scheduled for , May 30, 2021 at 10:45, centralized scheduling will call patient with appointment information.
--- NOTE | 2021-06-06 12:26 | DCPLANNER ---
medication care manager was asked to schedule a follow up appointment for patient with [facility], due to an abnormal stress test. medication care manager called [facility], spoke with Ele, gave clinic patients information. medication care manager was that patient has an appointment scheduled for Tuesday, June 22, 2021 at 9:[address] Robledo. A follow up appointment was scheduled for 06.06.21 at 11:[address] Robledo. medication care manager called patient to give her the updated appointment information. Patient stated that would not work for her, she was on her way out of town for . Patient stated that she wanted to keep her original appointment. medication care manager called [facility], spoke with Ele, and told her that patient wanted the original appointment.
--- NOTE | 2021-07-02 06:31 | DCPLANNER ---
Patient had a follow up appointment with Dr. Robledo at [facility] - patient did attend appointment.
--- NOTE | 2021-08-11 16:12 | DCPLANNER ---
Patient had an outpatient stress test - patient did attend appointment.
== END 2021-05-13 12:12 | disposition home or self-care (01) ==
PROVIDERS: Emergency Provider Family Medicine; PCP Family Medicine
DX: R07.89 Other chest pain (principal); N30.90 Cystitis, unspecified without hematuria; E11.621 Type 2 diabetes mellitus with foot ulcer; L97.509 Non-pressure chronic ulcer of other part of unspecified foot with unspecified severity; I12.9 Hypertensive chronic kidney disease with stage 1 through stage 4 chronic kidney disease, or unspecified chronic kidney disease; E11.22 Type 2 diabetes mellitus with diabetic chronic kidney disease; N18.9 Chronic kidney disease, unspecified; K21.9 Gastro-esophageal reflux disease without esophagitis; E03.9 Hypothyroidism, unspecified; E78.5 Hyperlipidemia, unspecified; Z79.82 Long term (current) use of aspirin
CPT/HCPCS: 36415; 71045; 73660; 80053; 81001; 82550; 83605; 83690; 84484; 85025; 87040; 87077; 87186; 87205; 87426; 87635; 93005; 96365; 99284; J0696

== ENCOUNTER → 2021-05-17 11:56 | Outpatient (BNVA) | payer MEDICARE, SELFPAY | PROVIDERS: PCP Family Medicine; Referring Provider Family Medicine; Visit Provider Podiatrist Foot & Ankle Surgery | DX: L97.529 Non-pressure chronic ulcer of other part of left foot with unspecified severity (principal); M79.89 Other specified soft tissue disorders; M79.672 Pain in left foot; Z46.89 Encounter for fitting and adjustment of other specified devices | CPT/HCPCS: 73630; 97760; L4361 ==

== ENCOUNTER 2021-05-17 12:46 | Outpatient (CLI) | payer MEDICARE, SELFPAY | END 2021-05-17 12:47 | disposition home or self-care (01) | LOC: SPT 12:49 | PROVIDERS: PCP Family Medicine; Visit Provider Podiatrist Foot & Ankle Surgery | DX: Z46.89 Encounter for fitting and adjustment of other specified devices (principal) | CPT/HCPCS: 97760; L4361 ==

== ENCOUNTER 2021-05-30 08:00 | Outpatient (CLI) | payer MEDICARE, SELFPAY ==
[2021-05-30 08:34] VITALS: BMI 47.7
--- NOTE | 2021-05-30 08:35 | NMCV_ITS ---
NM meg perf SPECT r/s* [id number] Shaniqua Islas Age: 66 Gender: F : 1955 Exam Date: 05/30/2021 08:35 Ordering Phys: Chi Esparza DO Technologist: MYRON Crawley Exam Location: [facility] Indications: ATYPICAL CHEST PAIN STRESS TEST [facility] IMAGE PROTOCOL Rest/Stress 1 Lexiscan Day Radiopharmaceutical Dose (mCi) Administration Site Administered by Rest: Tc-99m 10.7 IV MYRON Crawley Sestamibi Stress:Tc-99m 33.0 IV MYRON Chand Sestamibi Rest: 30-May-2021 60 Discovery 630 Stress: 30-May-2021 30 Discovery 630 0.4mg Lexiscan. Images obtained in supine and prone position. SPECT RESULTS Technical Quality: Excellent Raw Data Analysis: Breast attenuation Image Corrections: No attenuation or motion correction applied Summed Stress Score: 14 Summed Rest Score: 3 Summed Difference Score: 12 PERFUSION FINDINGS Moderate sized reversible perfusion abnormality of moderate severity of mid to apical anterior, basal anterolateral, mid lateral, apical lateral and apical gonzalez on stress images. There is somewhat improved tracer uptake in anterior wall on prone stress images. FUNCTIONAL RESULTS (calculated via Gated SPECT) Stress Image LV EF (%): 56 Stress EDV (mL):144 TID: 1.3 Stress ESV (mL):64 FUNCTIONAL FINDINGS: The left ventricle is normal in size. Transient Ischemia Dilatation of 1.3. There is normal left ventricular systolic function. The left ventricular ejection fraction is normal with a value of 56%. There is possible hypokinesis of mid lateral and apical lateral gonzalez. Increase end-diastolic end-systolic volumes. IMPRESSIONS 1. Moderate sized reversible perfusion abnormality of moderate severity of mid to apical anterior, basal anterolateral, mid lateral, apical lateral and apical gonzalez. 2. This may represent ischemia in circumflex artery territory. Attenuation artifact cannot be completely ruled out given improved tracer uptake in anterior wall on prone stress images. 3. Overall left ventricular systolic function is normal without regional wall motion abnormalities, LVEF=56%. 4. EKG portion of the study will be reported separately. 5. No prior similar studies to compare. Maricruz Robledo MD (Electronically Signed) Final Date: 04 June 2021 19:41 S
--- NOTE | 2021-05-30 08:35 | ECG_ITS ---
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 Interpretive Statements NAME OF STUDY: LEXISCAN SESTAMIBI STRESS TEST INDICATION: Chest Pain PROCEDURE: At the baseline, the blood pressure was 137/67 mmHg with a heart rate of 67 bpm. The electrocardiogram showed normal sinus rhythm, normal axis. Right bundle branch block. The Lexiscan was infused over a period of 20 seconds. A total of 0.4 milligrams of Lexiscan was infused. The stress phase was continued for a total of 5 minutes. Heart rate at the end of the stress phase was 70 bpm with a blood pressure of 157/63 mmHg. The EKG at the peak infusion revealed sinus rhythm with no significant ST-T wave changes. Sestamibi was injected 20 seconds after the Lexiscan infusion. Blood pressure at the end of the recovery phase was 152/66 mmHg with a heart rate of 70 beats per minute. CONCLUSION: 1. No significant EKG changes with the LexiScan infusion. 2. No LexiScan induced chest pain or cardiac arrhythmia. 3. Normal blood pressure and heart rate response. 4. Sestamibi/sestamibi perfusion scan pending; see separate report. Electronically Signed On 06-04-2021 19:24:44 ALCOHOL RUBBER by Maricruz Robledo M.D. [id number]
[2021-05-30 10:50] VITALS: BP 159/64; PULSE 69
[2021-05-30] MEDS: regadenoson 0.4 Mg/5 ml Syringe IVP (10:50)
== END 2021-05-30 08:01 | disposition home or self-care (01) ==
LOC: CDL 08:02
PROVIDERS: PCP Family Medicine; Visit Provider Family Medicine
DX: R07.89 Other chest pain (principal)
CPT/HCPCS: 78452; 93017; A9500; J2785

== ENCOUNTER → 2021-06-03 11:08 | Outpatient (BNVA) | payer MEDICARE, SELFPAY | PROVIDERS: PCP Family Medicine; Visit Provider Family Medicine | DX: E11.9 Type 2 diabetes mellitus without complications (principal) | CPT/HCPCS: 80048; 82043; 83036 ==

== ENCOUNTER → 2021-06-24 16:29 | Outpatient (BNVA) | payer MEDICARE, SELFPAY | PROVIDERS: PCP Family Medicine; Referring Provider Internal Medicine Cardiovascular Disease; Visit Provider Internal Medicine Cardiovascular Disease | DX: Z01.818 Encounter for other preprocedural examination (principal); R06.02 Shortness of breath; R07.9 Chest pain, unspecified; Z20.822 Contact with and (suspected) exposure to COVID-19; R94.39 Abnormal result of other cardiovascular function study | CPT/HCPCS: 80048; 85025; 85610; 87635 ==

== ENCOUNTER 2021-06-27 11:59 | Observation (INO) | payer MEDICARE, SELFPAY ==
[2021-06-27] VITALS (31 sets, daily range): BP systolic 115–181; BP diastolic 58–95; PULSE 59–89; RESP 15–32; TEMP 36.6–37; O2SAT 98; BMI 47.0
--- NOTE | 2021-06-27 09:00 | XACV_ITS ---
Ht: 170 cm Wt: 136 kg BSA: 2.61 m2 Gender: Female : 1955 Any Known Allergies: Sulfa Exam Priority: Routine Procedure(s): Procedure Description: Diagnostic procedure Procedure Description: Left Heart Catheterization Procedure Description: Coronary Angiography Procedure Description: Pressure Wire Diagnostic Cath Status: Elective Diagnostic Findings * Mid Left Anterior Descending: moderate 40% stenosis, JERMAN: 3 flow. * INDICATION: Abnormal stress test/ chest pain. * Left Main has no disease. * Circumflex has no disease. * Right Coronary Artery has no disease. * Coronary angiography shows left dominance. Interventional Findings * Procedure detail: We engaged left main artery with XB 3.5 guide catheter. IV heparin was administered to maintain an ACT of 250 s. After zeroing and normalization IFR wire was placed in distal LAD past the mid LAD stenosis. IFR value of 0.92 was obtained. We administered IV adenosine and performed FFR, and FFR value was also nonischemic at 0.85. At this time IFR wire was pulled back. Final angiogram was administered that showed no complications. Femoral angiogram was performed, we attempted placing Perclose closure device however it failed and reported 7 Guinean sheath back and the artery. It was sutured in place for removal later.. Conclusions 1. Mild to moderate mid LAD stenosis, 2. s/p 3. IFR and FFR which were both nonischemic.. 4. Mild aortic stenosis with mean gradient across aortic valve of 20mmHg. Recommendations * Aggressive risk factor control. * Outpatient cardiology follow-up in 4 weeks. Interventional RX Recommendation: medical therapy and/or counseling Diagnostic RX Recommendation: other cardiac therapy w/o CABG/PCI Anticoagulation: Heparin Pressures Phase:Rest AO : 135 / 72 ( 97 ) @ 9:19:00 AM 155 / 67 ( 101 ) @ 9:43:00 AM 157 / 68 ( 102 ) @ 9:43:00 AM 159 / 68 ( 101 ) @ 9:43:00 AM LV : 166 / -9 / 10 @ 9:42:00 AM 169 / -10 / 10 @ 9:43:00 AM Valves Phase:DefaultPhase AV : 13.0 @ 12:15:55 PM AV Mean Gradient: 20.0 @ 12:15:55 PM Clinical Evaluation EBL: 5mL-10mL Procedural Details Procedure Consent Obtained. Pre-Procedure Time Out. Identified patient by full name and date of as verbalized by the patient/guarantor. Does the consent match the physician's order: Yes. Accurate & Complete Informed Consent: Yes. Inpatient/Outpatient History & Physical on Chart: Yes. If H&P is completed, is and addenduem needed: No; If yes, is the addendum complete: N/A. Visualize and Verify Site with Patient/Guarantor: N/A. Relevant Radiology Images available: N/A. Pre-op teaching completed and patient verbalized understanding. The risks, benefits, and alternatives of sedation and/or procedure were discussed by physician. The patient agrees to continue. Procedure started. Physician notified. Correct patient, site and procedure confirmed by cath team. PERRLA. Strong, equal hand signal fitter bilaterally. Lungs clear x 5 lobes. IV Site on Arrival: 20 gauge in the left anticubital. IV Fluids: 0.9% NaCl at KVO. 0 mL infused prior to clinical lab clerk. Pre Procedural Pulses: bilateral dorsalis pedis was 3+. Pre Procedural Pulses: bilateral posterior tibial was 1+. Pre Procedural Pulses: bilateral radial was 3+. Oxygen started at 2liters/min via nasal canula. Baseline sample Acquired. HR: 87 BPM. Sam Werner will be pyrotechnic assembler for procedure. Physician arrived. Equipment: 6F - Radial. Cardiac Cath Pack. ACIST Manifold Kit Model BT 2000. Heparinized Saline (2 units/mL), 1000 mL bag. [facility] Clinical Fraility Score: 3: Managing Well. Dry Box Operator Indications: New Onset Angina, abnormal stress test. Chest Pain Symptom Assessment: Atypical Angina. Cardiovascular Instability: No. right groin was prepped with chloroprep then draped in the usual sterile fashion. right radial was prepped with chloroprep then draped in the usual sterile fashion. Baseline sample Acquired. HR: 94 BPM. Physician scrubbed in. Immediate Pre-Procedure Time Out. Correct Patient: Yes; Correct Procedure: Yes; Correct Site: Yes; Correct Patient Position: Yes; Correct Supplies: Yes; Dried Flammable Prep: Yes; Blood Products Available: N/A;. Lidocaine 1% infiltrated to the right radial. Arterial access obtained. Unable to advance the catheter. Catheter out. A 5 guamanian TIG catheter in over wire. Hand injection performed. Glidewire inserted. Glidewire out. Hand injection performed. Unable to advance catheter using radial approach due to tortuosity of artery. Physician moving to femoral access. A TR Band was successful obtaining hemostatsis at the Right Radial artery insertion site. TR band placed. Hemostasis obtained. Lidocaine 1% infiltrated to the right groin. Arterial access obtained with micropuncture set. A 5 guamanian JL4 catheter in over wire. Multiple views taken of left coronary artery. Catheter removed over the standard wire. A 5 guamanian JR4 catheter in over wire. Multiple views taken of right coronary artery. Catheter removed over the standard wire. Sheath upsized to a 6 Fr. 6 guamanian XB 3.5 guide catheter was inserted over the wire. OMNIWIRE IFR guidewire was advanced through the guide catheter to lesion in the mid LAD. IFR measurements obtained. Fractional flow reserve measurements obtained. 0.85. Adenosine 180mg/100 ml for dose of 571ml/hr for total of 2 min to obtain FFR measurement. Pressure wire out. Guide catheter out. A 5 guamanian JR4 catheter in over wire. EDP Sample taken: LV 166/-10,10; HR: 67 BPM; SpO2: 100%. Pullback taken: LV 169/-11,10; AO 155/67(101); Mean: 20mmHg, Peak to Peak: 13mmHg, SEP: 20sec/min; HR: 67 BPM; SpO2: 100%. IFR measurement obtained of 0.92. Catheter removed over the standard wire. A Right femoral angiogram was performed to determine safe placement of closure device. Lidocaine 1% infiltrated to the right groin. Perclose unsuccessful. Sheath will be sutured in. Physician scrubbed out. A Suture was successful obtaining hemostatsis at the Right Femoral artery insertion site. Sheath(s) sutured into position with 2-0 silk and sterile 4x4's and Op-site applied over the site. No oozing or signs and symptoms of hematoma noted. Arterial sheath flushed and connected to tranducer and pressure bag with heparinized saline. Post Procedure: Pulses reassessed and unchanged. Manual pressure held at site before suturing sheath. PERRLA. Strong, equal hand signal fitter bilaterally. No VTE prophylaxis required. Medication's Wasted: Lidocaine 1% = 8 mL. Medication's Wasted: Nitro = 49.7 mg. Medication's Wasted: Heparin = 5000 units. Total IV fluids: 65 mL. Contrast type used: Omnipaque 300 mgI/mL, 500 mL bottle. Post-op diagnosis: moderate mid LAD stenosis, non ischemic IFR. Complications: none. Estimated blood loss: 5mL-10mL. Sheath upsized to a [address] Hou. Procedure completed. Patient transferred by bed to 1st floor. Vital chart was stopped. Access Site Site: Right Radial artery Sheath Size: 6 Fr Hemostasis Method: TR Band Hemostasis Success: Successful Site: Right Femoral artery Sheath Size: 5 Fr Hemostasis Method: Suture Hemostasis Success: Successful Procedure Medications Start: 10:44 AM Stop: 10:44 AM Medication: Versed Amount: 1 mg Route: I.V. Start: 10:44 AM Stop: 10:44 AM Medication: Fentanyl Amount: 50 mcg Route: I.V. Start: 10:45 AM Stop: 10:45 AM Medication: Benadryl Amount: 25 mg Route: I.V. Start: 10:50 AM Stop: 10:50 AM Medication: Nitrogylcerin Amount: 200 mcg Route: I.A. Start: 10:52 AM Stop: 10:52 AM Medication: Nitrogylcerin Amount: 100 mcg Route: I.A. Start: 10:52 AM Stop: 10:52 AM Medication: Versed Amount: 1 mg Route: I.V. Start: 10:52 AM Stop: 10:52 AM Medication: Fentanyl Amount: 50 mcg Route: I.V. Start: 11:17 AM Stop: 11:17 AM Medication: Heparin Amount: 8000 units Route: I.V. Start: 11:33 AM Stop: 11:33 AM Medication: Heparin Amount: 1000 units Route: I.V. I, the attending physician, have reviewed and verified all procedure medications. Yes, all medications given per verbal order History/Risk Factors Hypertension: Yes Dyslipidemia: Yes Peripheral Arterial Disease (PAD): No Myocardial Infarction (NM): No Obesity: Yes Renal Disease: No Tobacco Use: Never Prior Interventions PCI: No CABG: No Valve Surgery: No Report Signatures Finalized by Zacarias Hou MD on 07/01/2021 04:15 PM
--- NOTE | 2021-06-27 10:10 | PC.NURSE ---
Addendum entered by Odalis De Leon RN 06/27/21 10:43: error in charting. charted on wrong pt. Original Note: recovery received pt from cathode washer post diagnostic c via wheelchair. tr band on right wrist with distal pulses present. pt complains of no pain. pt educated on restrictions of right wrist. both acknowledged understanding. will re-educated throughout recovery. pt monitored per protocol.
--- NOTE | 2021-06-27 10:39 | W.PM.OPSUD ---
Surgery/Procedure H&P Update DATE OF PROCEDURE: June 27, 2021 DATE H&P PERFORMED: 06/21/21 H&P UPDATE INFORMATION: I have reviewed H&P completed within last 30 days and I have examined patient prior to procedure PREOP DIAGNOSIS: Chest pain/abnormal stress test PRIMARY INDICATION FOR PROCEDURE: Chest pain/ abnormal stress test PLANNED PROCEDURE: Operation Date: 06/27/21 10:00 Proposed Procedures p Cardiac Catheterization(Left) - Zacarias Hou M.D Possible percutaneous coronary intervention PATIENT REASSESSED PRIOR TO SEDATION, WITH NO CHANGE NOTED: Yes PHYSICAL EXAM: alert, oriented x 3, clear to auscultation bilaterally and regular rate & rhythm AIRWAY EVAL/ANESTHESIA PLAN: ASA III, Monitored Anesthesia, Local Anesthesia, Risks, benefits & alternatives of sedation and/or procedure discussed and Patient agrees to continue as planned
[2021-06-27 14:57] LABS: Partial Thromboplastin Time 56.5 SECONDS (23.9-36.7)
[2021-06-27] MEDS: fentaNYL 50 mcg/mL INJ 2mL 25 MCG IVP (15:45)
--- NOTE | 2021-06-27 16:00 | PC.NURSE ---
Addendum entered by Casey Caballero RN 06/27/21 21:17: 1620 pm- cleanse site. Transparent and 2x2 dressing applied to right groin. Addendum entered by Casey Caballero RN 06/27/21 21:04: 1600 pm-Sheath removal Manual pressure held for 20 mins. hemostasis achieved. 7 fr sheath cath tip intact. pt tolerated the procedure well. Original Note: Sheath Removal and TR band Removal Explained procedure to pt. Pre-medicated with Fentanyl prior to sheath removal as ordered. Right femoral artery felt palpable. 7 FR Sheath removed on right femoral arterial artery. No bleeding, hematoma, swelling. Pt has minimal bruising from failed pantera-close post cath this morning. mild tenderness upon palpation on her her puncture site. Dorsalis pedis palpable +3. right foot is warm. Instructed pt on activity restrictions post cath such as no lifting on right leg and bedrest for 4 to 5 hrs. call light provided to pt.
--- NOTE | 2021-06-27 16:05 | PC.NURSE ---
TR band removal no bleeding, hematoma or swelling noted on right radial artery. radial pulse is palpable +3. Activity restrictions on right arm discuss to pt. Pt teaches back. applied dressing on right wrist with transparent and 2x2 dressing.
--- NOTE | 2021-06-27 19:02 | PC.NURSE ---
Received report from KIM Cortez. Patient resting in bed watching tv. Patient is s/p [facility] without intervention. Patient has right femoral access site with dressing in place to site. Dressing remains c,d,i with no s/s of bleeding or hematoma formation observed. Positioned patient for comfort. Patient remain out patient in a bed. Refusing to go home tonight. Will keep overnight and discharge in am per Dr Hou. Patient denies pain or needs. No distress observed.
[2021-06-28 00:08] VITALS: BP 148/70; PULSE 69; RESP 18
[2021-06-28 03:54] VITALS: BP 116/72; PULSE 89; RESP 15; TEMP 36.8
[2021-06-28 04:24] VITALS: PULSE 65
--- NOTE | 2021-06-28 06:05 | PC.NURSE ---
Shift Note Frequent safety and comfort rounds continue. Orders and/or nursing care completed as indicated. Patient monitored for response to intervention and treatment(s). Education provided includes post heart cath site care. Patient verbalized complete understanding. Dressing to right groin remains c,d,i with no s/s of bleeding or hematoma observed. Patient denies pain to site. No distress observed. Planned for discharge home today. Will continue to monitor.
[2021-06-28 06:46] LABS: Glucose Point of Care 115 mg/dL (70-110)
[2021-06-28 08:00] VITALS: BP 145/73; PULSE 73; RESP 22; TEMP 36.7
--- NOTE | 2021-06-28 08:14 | P.SS_ITS ---
Short Stay Summary Providers Date of Admit/Discharge: 06/27/21 Attending Provider: Zacarias Hou M.D Primary Care Provider: Paradise Gonzalez DO Chief Complaint: [id number] abnormal result of other cardiovascul HPI History of Present Illness Shaniqua Islas is a 66 year old female who had been having chest pain symptoms and underwent stress test that was abnormal. Plan was to perform left heart cath. Review of Systems Const: Reports: fatigue Eyes: Denies: change in vision ENMT: Denies: bleeding gums Card: Reports: chest pain, irregular heart rhythm, swelling of feet/ankles, lightheadedness, pre-syncope and dyspnea on exertion; Denies: palpitations or syncope Resp: Reports: wheezing and chest congestion GI: Denies: nausea, vomiting or hematochezia : Denies: hematuria Musc: Reports: neck pain and back pain Skin/Breast: Reports: dry skin Neuro: Reports: headache(s) and dizziness Psych: Reports: anxiety and depression Endo: Reports: tired all the time Edson/Lymph: Reports: easy bruising; Denies: easy bleeding All/Imm: Reports: seasonal rhinorrhea Home Meds/Allergies Home Medications and Allergies Home Medications Medication Instructions Recorded Confirmed Type cetirizine 10 mg tablet 10 mg PO DAILY 09/06/19 07/04/21 History coenzyme Q10 100 mg capsule 300 mg PO DAILY cap 09/06/19 07/04/21 History cornelio (Zingiber officinalis) 500 500 mg PO DAILY 09/06/19 07/04/21 History mg capsule magnesium oxide 400 mg (241.3 mg 400 mg PO DAILY tab 09/06/19 07/04/21 History magnesium) tablet zinc 50 mg tablet 50 mg PO DAILY 09/06/19 07/04/21 History pyridoxine (vitamin B6) 25 mg PO DAILY 10/03/19 07/04/21 History Tart Abbasi Extract 1,000 mg PO DAILY 02/16/20 07/04/21 History cyanocobalamin (vitamin B-12) 5,000 mcg SUBLINGUAL DAILY 02/16/20 07/04/21 History [Vitamin B-12] cholecalciferol (vitamin D3) 1,250 5,000 unit PO DAILY cap 03/20/20 07/04/21 History mcg (50,000 unit) capsule ketoconazole 2 % topical cream 1 applic TOPICAL DAILY 03/20/20 07/04/21 History acetylcarnitine HCl 400 mg-alpha 1 cap PO DAILY cap 04/24/20 07/04/21 History lipoic acid 200 mg capsule aspirin 81 mg tablet,delayed 81 mg PO DAILY 11/19/20 07/04/21 History release thiamine HCl (vitamin B1) PO 12/10/20 07/04/21 History Allergies Allergy/AdvReac Type Severity Reaction Status Date / Time meperidine Allergy ALGY-Rash Verified 07/04/21 09:51 Penicillins Allergy ALGY-Rash Verified 07/04/21 09:51 Sulfa (Sulfonamide Allergy ALGY-Rash Verified 07/04/21 09:51 Antibiotics) PFSH Acute PFSH: Medical History Basal cell carcinoma CKD (chronic kidney disease), stage III Dyslipidemia GERD (gastroesophageal reflux disease) History of asthma History of cardiac murmur History of colon polyps Hx of gout Hx of sleep apnea Hypertension Hypothyroidism Shoulder pain, left Squamous cell carcinoma Type 2 diabetes mellitus, without long-term current use of insulin Ventral hernia Surgical History History of arthroscopic knee surgery Right 2x History of colonoscopy (~10/04/19) Cecal and sigmoid colon polyp, mild diverticulosis History of esophagogastroduodenoscopy (EGD) (~10/04/19) Gastric polyp History of incisional hernia repair (02/20/20) Family History Father Anesthesia complication Other Heart disease Denies family history of Bleeding disorder Social History Alcohol intake: never Lives independently: Yes Household members: spouse Current occupational status: employed History of recent travel: No Vitals/I&O/Wt Last Vital Signs Temp 98.2 F 06/28/21 03:54 Pulse 65 06/28/21 04:24 Resp 15 06/28/21 03:54 BP 116/72 06/28/21 03:54 Pulse Ox 98 06/27/21 10:26 Weight last 48 hrs Weight 300 lb Physical Exam Narrative: EXAM NARRATIVE: GENERAL: Patient is alert, awake and oriented x3. [] NECK: No jugular vein distension. [] HEENT: No cyanosis. No icterus. No pallor. [] HEART: Regular S1 and S2. No murmur, rub or gallop. [] LUNGS: Clear to auscultate bilaterally. [] ABDOMEN: Soft, nontender and nondistended. Positive bowel sounds. No guarding, rebound or tenderness. [] CENTRAL NERVOUS SYSTEM: Grossly nonfocal. [] EXTREMITIES: Lower extremities with 1+ edema bilaterally. Pulses palpable in the lower extremities, both dorsalis pedis and posterior tibial. [] Hospital Course Hospital Course Shaniqua Islas is a 66 year old female who had been having chest pain symptoms and underwent stress test that was abnormal. Plan was to perform left heart cath. Heart cath showed moderate mid LAD stenosis. IFR and FFR was performed that were both nonischemic. She stayed in the hospital overnight to assess for bleeding at femoral access site.( closure device failed and sheath was pulled back in). She did not have any complications and was discharged in a stable condition SSS Data Data Completed and Pending: Pending at discharge Category Date Time Status RUBBER PRESS TENDER request for service Routin e Exams 06/27/21 09:00 Taken Discharge Plan Discharge Patient Disposition: Home Condition: Stable Prescriptions: Continued zinc 50 mg tablet 50 mg PO DAILY RF: 0 coenzyme Q10 [CoQ-10] 100 mg capsule 300 mg PO DAILY RF: 0 cetirizine [Zyrtec] 10 mg tablet 10 mg PO DAILY RF: 0 magnesium oxide 400 mg (241.3 mg magnesium) tablet 400 mg PO DAILY RF: 0 Januvia 50 mg tablet 50 mg PO DAILY Qty: 90 RF: 1 ketoconazole 2 % cream 1 applic TOPICAL DAILY RF: 0 (DME) Diabetic Shoes with 3 pair of inserts See Rx Instructions .ROUTE .MEDSUPPLY Qty: 1 RF: 0 aspirin [Adult Low Dose Aspirin] 81 mg tablet,delayed release (DR/EC) 81 mg PO DAILY RF: 0 (DME) CPAP mask and tubing See Rx Instructions .Route .MEDSUPPLY Qty: 1 RF: 0 thiamine HCl (vitamin B1) PO RF: 0 cornelio (Zingiber officinalis) 500 mg capsule 500 mg PO DAILY RF: 0 acetylcarnitin HCl-a lipoic ac 400-200 mg capsule 1 cap PO DAILY RF: 0 (DME) Diabetic shoes with 3 molded inserts See Rx Instructions .Route .MEDSUPPLY Qty: 1 RF: 0 hydrochlorothiazide 12.5 mg tablet 12.5 mg PO QAM Qty: 90 RF: 1 pantoprazole [Protonix] 40 mg tablet,delayed release (DR/EC) 40 mg PO DAILY Qty: 90 RF: 1 ezetimibe 10 mg tablet 10 mg PO DAILY Qty: 90 RF: 1 levothyroxine [Synthroid] 150 mcg tablet 150 mcg PO DAILY Qty: 90 RF: 0 glimepiride 2 mg tablet 2 mg PO DAILY 90 Days Qty: 90 RF: 1 allopurinol 300 mg tablet 300 mg PO DAILY Qty: 90 RF: 1 nitroglycerin 0.4 mg tablet, sublingual 0.4 mg sublingual Q5M PRN (Reason: chest pain) Qty: 20 RF: 0 pyridoxine (vitamin B6) 25 mg Tablet 25 mg PO DAILY RF: 0 cholecalciferol (vitamin D3) 1,250 mcg (50,000 unit) capsule 5,000 unit PO DAILY RF: 0 Tart Abbasi Extract 1,000 mg Capsule 1,000 mg PO DAILY RF: 0 cyanocobalamin (vitamin B-12) [Vitamin B-12] 5,000 mcg Tablet, Sublingual 5,000 mcg SUBLINGUAL DAILY RF: 0 Advair Diskus 250-50 mcg/dose blister with device 1 inh INHALATION BID 90 Days Qty: 180 RF: 0 No Action Farxiga 5 mg tablet 5 mg PO QAM Qty: 30 RF: 0 Discharge Orders: Discharge Order (Routine); Ordered 06/28/21 Ordered By: Zacarias Hou Referrals: Jada Arias FNP [Nurse Practitioner] - 07/04/21 9:15 am (You have a post procedure followup with ASHLEY S[facility]chez at [facility] on July 04 at 9:15am) Maricruz Robledo MD [Physician] - 08/06/21 1:45 pm (You have a cardiology followup with Dr. Robledo at [facility] on August 06 at 1:45pm You appointment in September has been cancelled) Discharge Diet: Diabetic Discharge Activity: Increase activity as tolerated Patient Instructions: Opioid Safety Attestations Medical Necessity Statement*: Care not expected to cross 2 midnights. Patient underwent left heart cath with IFR and FFR yesterday and stayed in the hospital for observing for bleeding complications. Time Spent in Patient Care*: less than 30 min Quality Metrics Clinical Quality Measures: During this hospital stay, did patient experience: None Coding Level of Care Code Acute Environmental Law Professor for Lucrecia Fernandes
[2021-06-28 09:52] VITALS: BP 145/73; PULSE 73; RESP 22; TEMP 36.7
--- NOTE | 2021-06-28 10:39 | PC.NURSE ---
Pt discharged home. IV removed no redness or swelling noted. Pts discharge instructions given along with follow up appointments. Pt had no pain or discomfort at the time of discharge.
== END 2021-06-28 10:20 | disposition home or self-care (01) ==
LOC: CSU 11:59
PROVIDERS: Admitting Provider Internal Medicine; PCP Family Medicine; Visit Provider Internal Medicine
DX: I35.0 Nonrheumatic aortic (valve) stenosis (principal); R07.9 Chest pain, unspecified; R94.39 Abnormal result of other cardiovascular function study; E11.22 Type 2 diabetes mellitus with diabetic chronic kidney disease; I12.9 Hypertensive chronic kidney disease with stage 1 through stage 4 chronic kidney disease, or unspecified chronic kidney disease; N18.30 Chronic kidney disease, stage 3 unspecified; E03.9 Hypothyroidism, unspecified; Z79.82 Long term (current) use of aspirin
CPT/HCPCS: 36415; 36416; 82962; 85730; 93452; 93571; C1760; C1769; C1887; C1894; G0378; J0153; J1200; J1644; J2250; J3010; J3490; J7030; Q9967

== ENCOUNTER → 2021-07-04 10:59 | Outpatient (BNVA) | payer MEDICARE, SELFPAY | PROVIDERS: PCP Family Medicine; Visit Provider Nurse Practitioner Family | DX: I25.119 Atherosclerotic heart disease of native coronary artery with unspecified angina pectoris (principal) | CPT/HCPCS: 80048 ==

== ENCOUNTER → 2021-08-06 11:09 | Outpatient (BNVA) | payer MEDICARE, SELFPAY | PROVIDERS: PCP Family Medicine; Visit Provider Family Medicine | DX: N18.31 Chronic kidney disease, stage 3a (principal); E11.9 Type 2 diabetes mellitus without complications; E03.9 Hypothyroidism, unspecified | CPT/HCPCS: 80048 ==

== ENCOUNTER → 2021-09-04 11:27 | Outpatient (BNVA) | payer MEDICARE, SELFPAY | PROVIDERS: PCP Family Medicine; Visit Provider Family Medicine | DX: R89.9 Unspecified abnormal finding in specimens from other organs, systems and tissues (principal) | CPT/HCPCS: 80048; 84443 ==

== ENCOUNTER → 2021-12-03 11:37 | Outpatient (BNVA) | payer MEDICARE, SELFPAY | PROVIDERS: PCP Family Medicine; Visit Provider Family Medicine | DX: E11.9 Type 2 diabetes mellitus without complications (principal); E03.9 Hypothyroidism, unspecified | CPT/HCPCS: 80053; 84443 ==

== ENCOUNTER → 2021-12-05 11:00 | Outpatient (BNVA) | payer MEDICARE, SELFPAY | PROVIDERS: PCP Family Medicine; Visit Provider Family Medicine | DX: E11.9 Type 2 diabetes mellitus without complications (principal) | CPT/HCPCS: 83036 ==

== ENCOUNTER → 2022-02-06 14:40 | Outpatient (BNVA) | payer MEDICARE, SELFPAY | PROVIDERS: PCP Family Medicine; Visit Provider Nurse Practitioner Family | DX: I35.0 Nonrheumatic aortic (valve) stenosis (principal); I25.119 Atherosclerotic heart disease of native coronary artery with unspecified angina pectoris; I12.9 Hypertensive chronic kidney disease with stage 1 through stage 4 chronic kidney disease, or unspecified chronic kidney disease; E11.22 Type 2 diabetes mellitus with diabetic chronic kidney disease; N18.30 Chronic kidney disease, stage 3 unspecified; Z79.84 Long term (current) use of oral hypoglycemic drugs | CPT/HCPCS: 99214 ==

== ENCOUNTER → 2022-02-10 12:09 | Outpatient (BNVA) | payer MEDICARE, SELFPAY | PROVIDERS: PCP Family Medicine; Visit Provider Family Medicine | DX: E03.9 Hypothyroidism, unspecified (principal) | CPT/HCPCS: 84443 ==

== ENCOUNTER → 2022-02-11 10:12 | Outpatient (BNVA) | payer MEDICARE, SELFPAY | PROVIDERS: PCP Family Medicine; Visit Provider Podiatrist Foot & Ankle Surgery | DX: E11.42 Type 2 diabetes mellitus with diabetic polyneuropathy (principal); N18.31 Chronic kidney disease, stage 3a; M20.11 Hallux valgus (acquired), right foot; M20.12 Hallux valgus (acquired), left foot; M20.41 Other hammer toe(s) (acquired), right foot; M20.42 Other hammer toe(s) (acquired), left foot; L60.3 Nail dystrophy; L84 Corns and callosities | CPT/HCPCS: 11055; 11721 ==

== ENCOUNTER 2022-03-28 12:22 | Outpatient (CLI) | payer MEDICARE, SELFPAY ==
--- NOTE | 2022-03-28 16:00 | CT_ITS ---
WS: [id number] CT NECK WITHOUT CONTRAST HISTORY: mass of neck, palpable area inferior RIGHT neck. TECHNIQUE: Contiguous 2 mm axial images are performed through the neck without intravenous contrast. Sagittal and coronal reformats are also submitted. All CT scans at [facility] use at least on e of these dose optimization techniques: automated exposure control; mA and/or kV adjustment per sampson ent size (includes targeted exams where dose is matched to clinical indication); or iterative reconst ruction. CONTRAST: CONTRAST: None DLP: 254.29 mGy.cm COMPARISON: None available. Marker is placed along the inferior RIGHT neck just below the level of the thyroid. There is no under lying mass. There is very mild prominence of the RIGHT sternocleidomastoid muscle. Just slightly infe rior to the marker is a mildly prominent medial RIGHT clavicular head. The RIGHT clavicular head is s lightly more prominent and superficially placed in the LEFT. Nasopharynx, oropharynx, hypopharynx and larynx are unremarkable. No soft tissue masses. Torus tubarius and fossa of Rosenmuller and parapharyngeal fat are normal. No significant lymphadenopathy is identified. Normal appearance of the thyroid salivary glands on this unenhanced study. No osseous abnormalities. Calcification in the carotid bifurcations. Visualized portions of the skull base demonstrate no abnormalities. Orbits and globes are within norm al limits. No soft tissue masses. Visualized paranasal sinuses and mastoid air cells are normal. Lung apices are clear. CT/CT neck wo con [id number] IMPRESSION: 1. No adenopathy or mass associated with the palpable marker placed along the inferior RIGHT neck. 2. Just inferior to the marker is a mildly prominent RIGHT clavicular head whi ch is more superficial than the LEFT clavicular head. This may be palpable. 3. No adenopathy.
== END 2022-03-28 12:23 | disposition home or self-care (01) ==
LOC: RAD 12:23
PROVIDERS: PCP Family Medicine; Visit Provider Family Medicine
DX: M79.89 Other specified soft tissue disorders (principal); E11.22 Type 2 diabetes mellitus with diabetic chronic kidney disease; N18.31 Chronic kidney disease, stage 3a; Z79.899 Other long term (current) drug therapy
CPT/HCPCS: 70490; 80053; 83036

== ENCOUNTER 2022-04-21 12:13 | Outpatient (CLI) | payer MEDICARE, SELFPAY ==
--- NOTE | 2022-04-21 12:15 | USCV_ITS ---
Shaniqua Islas Age: 67 Gender: F : 1955 Exam Date: 04/21/2022 12:32 Ordering Phys: Jada Arias Technologist: Katherin Boykin Exam Location: [facility] [place] Indication: Aortic stenosis BP: 137 / 78 HR: 64 Rhythm: Sinus Technical Quality: Good MEASUREMENTS (Male / Female) Normal Values 2D ECHO LV Diastolic Diameter PLAX 4.9 cm 4.2 - 5.9 / 3.9 - 5.3 cm LV Systolic Diameter PLAX 2.8 cm IVS Diastolic Thickness 1.1 cm 0.6 - 1.0 / 0.6 - 0.9 cm IVS Systolic Thickness 1.7 cm LVPW Diastolic Thickness 1.1 cm 0.6 - 1.0 / 0.6 - 0.9 cm LVPW Systolic Thickness 2.6 cm LVOT Diameter 2.1 cm LV Ejection Fraction 2D Teich 74.7 % LV Ejection Fraction MOD 2C 54.9 % LV Ejection Fraction 2C AL 55.9 % LA Diameter 4.5 cm LA Width 4.1 cm LA Height 5.7 cm RA Width 3.5 cm RA Height 5.0 cm Aorta at Sinotubular Diameter 2.9 cm IVC Diameter 1.3 cm M-MODE MV E Point Septal Separation 1.0 cm DOPPLER AV Peak Velocity 308.5 cm/s LVOT Peak Velocity 106.0 cm/s AV Area Cont Eq vti 1.3 cm squared AV Area Cont Eq pk 1.2 cm squared MV Peak Velocity 149.0 cm/s MV Area PHT 2.9 cm squared Mitral E to A Ratio 0.9 MV E' Velocity 71.0 cm/s Mitral E to MV E' Ratio 18.5 Mitral E to LV E' Lateral Ratio 16.3 Mitral E to LV E' Septal Ratio 21.9 TR Peak Velocity 198.5 cm/s TR Peak Gradient 15.8 mmHg Right Atrial Pressure 3.0 mmHg Pulmonary Artery Systolic Pressu 18.8 mmHg PV Peak Velocity 84.0 cm/s RV Acceleration Time 0.1 s RV Ejection Time 0.4 s RV AcT/ET 0.4 FINDINGS Left Ventricle Normal left ventricular size, systolic function and mildly increased wall thickness, with no regional wall motion abnormalities. Left ventricular ejection fraction is estimated at 65 %. Grade II diastolic dysfunction, moderately elevated filling pressures. Right Ventricle Normal right ventricular size and systolic function. Right ventricular systolic pressure 31 mmHg. Right Atrium Normal right atrial size. Left Atrium Mildly increased left atrial size. Mitral Valve Aortic Valve Markedly thickened and calcified trileaflet aortic valve. Moderate aortic valve stenosis, peak velocity 3 m/s, peak gradient 38 mmHg, mean gradient 20 mmHg, VINI 1.3 cm squared. Trace aortic valve regurgitation. Tricuspid Valve Structurally normal tricuspid valve. Trace tricuspid valve regurgitation. Pulmonic Valve Structurally normal pulmonic valve. No pulmonary valve stenosis. Trace pulmonary valve regurgitation. Pericardium No pericardial effusion. Aorta Normal size aortic root and proximal ascending aorta. IVC Normal IVC dimension with >50% respiratory change of the inferior vena cava. CONCLUSIONS 1. Normal left ventricular size, systolic function and mildly increased wall thickness, with no regional wall motion abnormalities. Left ventricular ejection fraction is estimated at 65 %. Grade II diastolic dysfunction, moderately elevated filling pressures. 2. Normal right ventricular size and systolic function. 3. Moderate aortic valve stenosis, peak velocity 3 m/s, peak gradient 38 mmHg, mean gradient 20 mmHg, VINI 1.3 cm squared. Trace aortic valve regurgitation. 4. Pulmonary artery pressure estimated at 31 mmHg. 5. When compared to previous study dated 04/25/2021, aortic valve stenosis has worsened from mild to moderate now. Maricruz Robledo MD (Electronically Signed) Final Date: 24 April 2022 15:39 S
== END 2022-04-21 12:14 | disposition home or self-care (01) ==
LOC: RAD 12:13
PROVIDERS: PCP Family Medicine; Visit Provider Nurse Practitioner Family
DX: I35.0 Nonrheumatic aortic (valve) stenosis (principal)
CPT/HCPCS: 93306

== ENCOUNTER → 2022-05-13 11:10 | Outpatient (BNVA) | payer MEDICARE, SELFPAY | PROVIDERS: PCP Family Medicine; Visit Provider Podiatrist Foot & Ankle Surgery | DX: E11.42 Type 2 diabetes mellitus with diabetic polyneuropathy (principal); N18.31 Chronic kidney disease, stage 3a; M20.11 Hallux valgus (acquired), right foot; M20.12 Hallux valgus (acquired), left foot; M20.41 Other hammer toe(s) (acquired), right foot; M20.42 Other hammer toe(s) (acquired), left foot; L60.3 Nail dystrophy; L84 Corns and callosities; E11.22 Type 2 diabetes mellitus with diabetic chronic kidney disease | CPT/HCPCS: 11056; 11721 ==

== ENCOUNTER → 2022-06-03 10:18 | Outpatient (BNVA) | payer MEDICARE, SELFPAY | PROVIDERS: PCP Family Medicine; Visit Provider Family Medicine | DX: E11.22 Type 2 diabetes mellitus with diabetic chronic kidney disease (principal); N18.31 Chronic kidney disease, stage 3a; E03.9 Hypothyroidism, unspecified; Z87.09 Personal history of other diseases of the respiratory system; E11.9 Type 2 diabetes mellitus without complications | CPT/HCPCS: 80053; 80061; 82043; 83036; 84443; 85025 ==

== ENCOUNTER 2022-06-19 11:32 | Outpatient (CLI) | payer MEDICARE, SELFPAY ==
--- NOTE | 2022-06-19 11:39 | MM_ITS ---
WS: [id number] BILATERAL SCREENING DIGITAL TOMOSYNTHESIS MAMMOGRAM WITH CAD HISTORY: screening mammogram COMPARISON: 11/30/2020, 11/15/2018 Bilateral CC and MLO views with tomosynthesis and synthetic mammography submitted. Computer aided det ection analyzed. Breast composition: There are scattered areas of fibroglandular density. No suspicious masses, microc alcifications or architectural distortion. Benign calcifications LEFT breast. MM/[place] [id number] IMPRESSION: BI-RADS: 2-Benign FOLLOW UP: 1 Year Follow-up
== END 2022-06-19 11:33 | disposition home or self-care (01) ==
LOC: RAD 11:35
PROVIDERS: PCP Family Medicine; Visit Provider Family Medicine
DX: Z12.31 Encounter for screening mammogram for malignant neoplasm of breast (principal)
CPT/HCPCS: 77063; 77067

== ENCOUNTER → 2022-08-07 13:53 | Outpatient (BNVA) | payer MEDICARE, SELFPAY | PROVIDERS: PCP Family Medicine; Visit Provider Internal Medicine Cardiovascular Disease | DX: I12.9 Hypertensive chronic kidney disease with stage 1 through stage 4 chronic kidney disease, or unspecified chronic kidney disease (principal); E11.22 Type 2 diabetes mellitus with diabetic chronic kidney disease; N18.31 Chronic kidney disease, stage 3a; Z79.84 Long term (current) use of oral hypoglycemic drugs; I35.0 Nonrheumatic aortic (valve) stenosis; I25.119 Atherosclerotic heart disease of native coronary artery with unspecified angina pectoris | CPT/HCPCS: 99214; Q3014 ==

== ENCOUNTER → 2022-08-21 13:11 | Outpatient (BNVA) | payer MEDICARE, SELFPAY | PROVIDERS: PCP Family Medicine; Visit Provider Podiatrist Foot & Ankle Surgery | DX: E11.22 Type 2 diabetes mellitus with diabetic chronic kidney disease (principal); E11.42 Type 2 diabetes mellitus with diabetic polyneuropathy; N18.31 Chronic kidney disease, stage 3a; E11.8 Type 2 diabetes mellitus with unspecified complications; M20.11 Hallux valgus (acquired), right foot; M20.12 Hallux valgus (acquired), left foot; M20.41 Other hammer toe(s) (acquired), right foot; M20.42 Other hammer toe(s) (acquired), left foot; L60.3 Nail dystrophy; L84 Corns and callosities; M76.71 Peroneal tendinitis, right leg | CPT/HCPCS: 11056; 11721; 99213 ==

== ENCOUNTER 2022-09-01 06:00 | Outpatient (RCR) | payer MEDICARE, SELFPAY | END 2022-09-16 23:59 | disposition home or self-care (01) | LOC: SPT 06:00 | PROVIDERS: PCP Family Medicine; Visit Provider Podiatrist Foot & Ankle Surgery | DX: M76.71 Peroneal tendinitis, right leg (principal); M25.571 Pain in right ankle and joints of right foot | CPT/HCPCS: 97110; 97161 ==

== ENCOUNTER → 2022-09-02 09:31 | Outpatient (BNVA) | payer MEDICARE, SELFPAY | PROVIDERS: PCP Family Medicine; Visit Provider Family Medicine | DX: E11.22 Type 2 diabetes mellitus with diabetic chronic kidney disease (principal); N18.31 Chronic kidney disease, stage 3a | CPT/HCPCS: 80053; 83036 ==

== ENCOUNTER 2022-09-17 06:00 | Outpatient (RCR) | payer MEDICARE, SELFPAY | END 2022-10-17 23:59 | disposition home or self-care (01) | LOC: SPT 06:00 | PROVIDERS: PCP Family Medicine; Visit Provider Podiatrist Foot & Ankle Surgery | DX: M76.71 Peroneal tendinitis, right leg (principal) | CPT/HCPCS: 97110; 97530 ==

== ENCOUNTER 2022-10-18 06:00 | Outpatient (RCR) | payer MEDICARE, SELFPAY | END 2022-11-16 23:59 | disposition home or self-care (01) | LOC: SPT 06:00 | PROVIDERS: PCP Family Medicine; Visit Provider Podiatrist Foot & Ankle Surgery | DX: M76.71 Peroneal tendinitis, right leg (principal) | CPT/HCPCS: 97110; 97530 ==

== ENCOUNTER → 2022-10-30 14:35 | Outpatient (BNVA) | payer MEDICARE, SELFPAY | PROVIDERS: PCP Family Medicine; Visit Provider Podiatrist Foot & Ankle Surgery | DX: E11.8 Type 2 diabetes mellitus with unspecified complications (principal); E11.42 Type 2 diabetes mellitus with diabetic polyneuropathy; N18.31 Chronic kidney disease, stage 3a; M20.11 Hallux valgus (acquired), right foot; M20.12 Hallux valgus (acquired), left foot; M20.41 Other hammer toe(s) (acquired), right foot; M20.42 Other hammer toe(s) (acquired), left foot; L60.3 Nail dystrophy; L84 Corns and callosities; E11.22 Type 2 diabetes mellitus with diabetic chronic kidney disease | CPT/HCPCS: 11056; 11721 ==

== ENCOUNTER → 2022-11-12 10:10 | Outpatient (BNVA) | payer MEDICARE, SELFPAY | PROVIDERS: PCP Family Medicine; Visit Provider Specialist | DX: M17.11 Unilateral primary osteoarthritis, right knee (principal); E66.01 Morbid (severe) obesity due to excess calories; Z68.42 Body mass index [BMI] 45.0-49.9, adult | CPT/HCPCS: 73560; 73565; 99213 ==

== ENCOUNTER 2022-11-17 06:00 | Outpatient (RCR) | payer MEDICARE, SELFPAY | END 2022-11-25 23:59 | disposition home or self-care (01) | LOC: SPT 06:00 | PROVIDERS: PCP Family Medicine; Visit Provider Podiatrist Foot & Ankle Surgery | DX: M76.71 Peroneal tendinitis, right leg (principal) | CPT/HCPCS: 97110 ==

== ENCOUNTER → 2022-12-01 09:53 | Outpatient (BNVA) | payer MEDICARE, SELFPAY | PROVIDERS: PCP Family Medicine; Visit Provider Family Medicine | DX: E11.42 Type 2 diabetes mellitus with diabetic polyneuropathy (principal) | CPT/HCPCS: 80053; 83036 ==

== ENCOUNTER 2023-01-21 14:53 | Outpatient (CLI) | payer MEDICARE, SELFPAY ==
--- NOTE | 2023-01-21 15:00 | XR_ITS ---
WS: [id number] SCREENING DEXA SCAN [employer] CLINICAL INFORMATION: postmenopausal COMPARISON: None. FINDINGS: The L1-L4 bone mineral density measures 1.318 g/cm2. This corresponds to a T score score of 1.1 and Z score of 1.6. Left femoral neck bone mineral density measures 1.381 g/cm2. This corresponds to a T score of 3.0 and Z score of 3.4. Right femoral neck bone mineral density measures 1.275 g/cm2. This corresponds to a T score 2.1of and Z score of 2.6. Mean femoral neck bone mineral density measures 1.328 g/cm2. This corresponds to a T score of 2.5 and Z score of 3.0. XR/XR DEXA axial skeleton* [id number] IMPRESSION: Normal bone mineralization. Patient's FRAX calculated 10 year probability for major osteoporotic fracture i s 7.2 % and osteoporotic hip fracture is 0.1%.
== END 2023-01-21 14:54 | disposition home or self-care (01) ==
LOC: RAD 14:54
PROVIDERS: PCP Family Medicine; Visit Provider Family Medicine
DX: Z13.820 Encounter for screening for osteoporosis (principal); Z78.0 Asymptomatic menopausal state
CPT/HCPCS: 77080

== ENCOUNTER → 2023-01-28 14:35 | Outpatient (BNVA) | payer MEDICARE, SELFPAY | PROVIDERS: PCP Family Medicine; Visit Provider Podiatrist Foot & Ankle Surgery | DX: E11.42 Type 2 diabetes mellitus with diabetic polyneuropathy (principal); L60.8 Other nail disorders; L84 Corns and callosities; L60.3 Nail dystrophy; M20.42 Other hammer toe(s) (acquired), left foot; M20.41 Other hammer toe(s) (acquired), right foot; M20.12 Hallux valgus (acquired), left foot; M20.11 Hallux valgus (acquired), right foot; N18.31 Chronic kidney disease, stage 3a; E11.22 Type 2 diabetes mellitus with diabetic chronic kidney disease | CPT/HCPCS: 11055; 11721 ==

== ENCOUNTER → 2023-03-12 09:30 | Outpatient (BNVA) | payer MEDICARE, SELFPAY | PROVIDERS: PCP Family Medicine; Visit Provider Family Medicine | DX: E11.22 Type 2 diabetes mellitus with diabetic chronic kidney disease (principal); I12.9 Hypertensive chronic kidney disease with stage 1 through stage 4 chronic kidney disease, or unspecified chronic kidney disease; N18.31 Chronic kidney disease, stage 3a; E03.9 Hypothyroidism, unspecified; E78.5 Hyperlipidemia, unspecified; Z87.09 Personal history of other diseases of the respiratory system | CPT/HCPCS: 80053; 83036; 84443 ==

== ENCOUNTER → 2023-03-30 15:33 | Outpatient (BNVA) | payer MEDICARE, SELFPAY | PROVIDERS: PCP Family Medicine; Visit Provider Family Medicine | DX: Z01.419 Encounter for gynecological examination (general) (routine) without abnormal findings | CPT/HCPCS: 87624 ==

== ENCOUNTER → 2023-04-01 13:48 | Outpatient (BNVA) | payer MEDICARE, SELFPAY | PROVIDERS: PCP Family Medicine; Visit Provider Podiatrist Foot & Ankle Surgery | DX: E11.42 Type 2 diabetes mellitus with diabetic polyneuropathy (principal); L60.3 Nail dystrophy; L84 Corns and callosities; N18.31 Chronic kidney disease, stage 3a; M20.11 Hallux valgus (acquired), right foot; M20.12 Hallux valgus (acquired), left foot; M20.41 Other hammer toe(s) (acquired), right foot; M20.42 Other hammer toe(s) (acquired), left foot; E11.22 Type 2 diabetes mellitus with diabetic chronic kidney disease | CPT/HCPCS: 11055; 11721 ==

== ENCOUNTER 2023-05-04 10:49 | Outpatient (CLI) | payer MEDICARE, SELFPAY ==
--- NOTE | 2023-05-04 11:00 | USCV_ITS ---
Shaniqua Islas Age: 68 Gender: F : 1955 Exam Date: 05/04/2023 11:01 Ordering Phys: Maricruz Robledo MD ([email or web address]) Technologist: Katherin Boykin [place]am Location: [facility] [place] Indication: Aortic stenosis BP: 142 / 82 HR: 69 Rhythm: Sinus Technical Quality: Adequate MEASUREMENTS (Male / Female) Normal Values 2D ECHO LV Diastolic Diameter PLAX 5.1 cm 4.2 - 5.9 / 3.9 - 5.3 cm LV Systolic Diameter PLAX 2.5 cm IVS Diastolic Thickness 1.2 cm 0.6 - 1.0 / 0.6 - 0.9 cm IVS Systolic Thickness 1.5 cm LVPW Diastolic Thickness 1.0 cm 0.6 - 1.0 / 0.6 - 0.9 cm LVPW Systolic Thickness 2.6 cm LVOT Diameter 2.0 cm LV Ejection Fraction 2D Teich 82.9 % LV Ejection Fraction MOD 2C 53.1 % LV Ejection Fraction 2C AL 55.0 % LA Diameter 3.7 cm LA Width 3.9 cm LA Height 4.9 cm RA Width 4.1 cm RA Height 4.6 cm Aorta at Sinotubular Diameter 2.6 cm IVC Diameter 1.6 cm M-MODE Aortic Annulus Diameter 3.2 cm LA Ao Ratio MM 1.4 MV E Point Septal Separation 1.2 cm DOPPLER AV Peak Velocity 275.8 cm/s LVOT Peak Velocity 91.0 cm/s AV Area Cont Eq vti 1.3 cm squared AV Area Cont Eq pk 1.0 cm squared MV Peak Velocity 135.0 cm/s MV Area PHT 2.6 cm squared Mitral E to A Ratio 0.6 MV E' Velocity 48.5 cm/s Mitral E to MV E' Ratio 16.2 Mitral E to LV E' Lateral Ratio 15.9 Mitral E to LV E' Septal Ratio 16.8 TR Peak Velocity 185.8 cm/s TR Peak Gradient 13.8 mmHg Right Atrial Pressure 5.0 mmHg Pulmonary Artery Systolic Pressu 18.8 mmHg PV Peak Velocity 73.0 cm/s RV Acceleration Time 0.1 s RV Ejection Time 0.3 s RV AcT/ET 0.3 FINDINGS Left Ventricle Normal left ventricular size, systolic function and increased wall thickness, with no regional wall motion abnormalities. Left ventricular ejection fraction is estimated at 60 %. Grade I diastolic dysfunction (abnormal relaxation filling pattern), normal to mildly elevated filling pressures. Right Ventricle Normal right ventricular size and systolic function. Right ventricular systolic pressure 25 mmHg. Right Atrium Normal right atrial size. Left Atrium Mildly increased left atrial size. Mitral Valve Moderate mitral annular calcification. No mitral valve stenosis. Trace mitral valve regurgitation. Aortic Valve Moderately thickened and calcified trileaflet aortic valve. Moderate aortic valve stenosis, peak velocity 2.8 m/s, peak gradient 32 mmHg, mean gradient 14 mmHg, VINI 1 cm squared. DVI=0.32. No aortic valve regurgitation. Tricuspid Valve Structurally normal tricuspid valve. No tricuspid valve stenosis. Trace tricuspid valve regurgitation. Pulmonic Valve Pulmonic valve not well visualized. No pulmonary valve stenosis. Pericardium No pericardial effusion. Aorta Normal size aortic root and proximal ascending aorta. IVC Normal IVC dimension with >50% respiratory change of the inferior vena cava. CONCLUSIONS 1. Normal left ventricular size, systolic function and increased wall thickness, with no regional wall motion abnormalities. Left ventricular ejection fraction is estimated at 60 %. Grade I diastolic dysfunction (abnormal relaxation filling pattern), normal to mildly elevated filling pressures. 2. Moderately thickened and calcified trileaflet aortic valve. Moderate aortic valve stenosis, peak velocity 2.8 m/s, peak gradient 32 mmHg, mean gradient 14 mmHg, VINI 1 cm squared. DVI=0.32. 3. Pulmonary artery pressure estimated 25 mmHg. 4. There may not have been any significant change when compared to study dated 04/21/2022. Maricruz Robledo MD (Electronically Signed) Final Date: 06 May 2023 12:19 S
== END 2023-05-04 10:50 | disposition home or self-care (01) ==
LOC: RAD 10:49
PROVIDERS: PCP Family Medicine; Visit Provider Internal Medicine Cardiovascular Disease
DX: I35.0 Nonrheumatic aortic (valve) stenosis (principal); I51.89 Other ill-defined heart diseases; I35.8 Other nonrheumatic aortic valve disorders
CPT/HCPCS: 93306

== ENCOUNTER → 2023-06-09 08:36 | Outpatient (BNVA) | payer MEDICARE, SELFPAY | PROVIDERS: PCP Family Medicine; Visit Provider Family Medicine | DX: E11.22 Type 2 diabetes mellitus with diabetic chronic kidney disease (principal); N18.31 Chronic kidney disease, stage 3a | CPT/HCPCS: 80053; 80061; 82043; 83036; 85025; 99214 ==

== ENCOUNTER 2023-06-26 11:00 | Outpatient (CLI) | payer MEDICARE, SELFPAY ==
--- NOTE | 2023-06-26 11:06 | MM_ITS ---
WS: [id number] Bilateral screening 3D tomosynthesis digital mammogram, 06/26/2023 Clinical Data: screening mammogram Comparison: 06/19/2022, 11/30/2020, 11/15/2018, 11/04/2016, 09/14/2013, 11/17/2011, 09/24/2009. Findings: The breast parenchymal pattern shows fibroglandular tissue. No spiculated masses or clustered calcifi cations are seen. There are no secondary signs of carcinoma. Impression: 1. Negative bilateral mammogram unchanged. 2. Recommend annual screening mammograms. MM/[place] [id number] BIRADS: 1-Negative FOLLOW UP: 1 Year Follow-up The CAD felt checker was used.
== END 2023-06-26 11:01 | disposition home or self-care (01) ==
LOC: RAD 11:01
PROVIDERS: PCP Family Medicine; Visit Provider Family Medicine
DX: Z12.31 Encounter for screening mammogram for malignant neoplasm of breast (principal)
CPT/HCPCS: 77063; 77067

== ENCOUNTER → 2023-06-30 10:56 | Outpatient (BNVA) | payer MEDICARE, SELFPAY | PROVIDERS: PCP Family Medicine; Visit Provider Podiatrist Foot & Ankle Surgery | DX: E11.42 Type 2 diabetes mellitus with diabetic polyneuropathy (principal); N18.31 Chronic kidney disease, stage 3a; M20.11 Hallux valgus (acquired), right foot; M20.12 Hallux valgus (acquired), left foot; M20.41 Other hammer toe(s) (acquired), right foot; M20.42 Other hammer toe(s) (acquired), left foot; L60.3 Nail dystrophy; L84 Corns and callosities; E11.22 Type 2 diabetes mellitus with diabetic chronic kidney disease | CPT/HCPCS: 11056; 11721 ==

== ENCOUNTER → 2023-09-10 09:16 | Outpatient (BNVA) | payer MEDICARE, SELFPAY | PROVIDERS: PCP Family Medicine; Visit Provider Family Medicine | DX: E03.9 Hypothyroidism, unspecified (principal); E11.22 Type 2 diabetes mellitus with diabetic chronic kidney disease; N18.31 Chronic kidney disease, stage 3a; Z13.6 Encounter for screening for cardiovascular disorders; E55.9 Vitamin D deficiency, unspecified; Z86.39 Personal history of other endocrine, nutritional and metabolic disease | CPT/HCPCS: 80053; 82306; 83036; 84443; 85025 ==

== ENCOUNTER → 2023-09-16 12:54 | Outpatient (BNVA) | payer MEDICARE, SELFPAY | PROVIDERS: PCP Family Medicine; Visit Provider Podiatrist Foot & Ankle Surgery | DX: E11.42 Type 2 diabetes mellitus with diabetic polyneuropathy (principal); N18.31 Chronic kidney disease, stage 3a; L60.3 Nail dystrophy; L84 Corns and callosities | CPT/HCPCS: 11056; 11721 ==

== ENCOUNTER → 2023-12-10 08:46 | Outpatient (BNVA) | payer MEDICARE, SELFPAY | PROVIDERS: PCP Family Medicine; Visit Provider Family Medicine | DX: E11.22 Type 2 diabetes mellitus with diabetic chronic kidney disease (principal); N18.31 Chronic kidney disease, stage 3a; Z87.39 Personal history of other diseases of the musculoskeletal system and connective tissue; J01.90 Acute sinusitis, unspecified; B96.89 Other specified bacterial agents as the cause of diseases classified elsewhere | CPT/HCPCS: 80053; 83036; 84550 ==

== ENCOUNTER → 2023-12-16 13:07 | Outpatient (BNVA) | payer MEDICARE, SELFPAY | PROVIDERS: PCP Family Medicine; Visit Provider Podiatrist Foot & Ankle Surgery | DX: E11.42 Type 2 diabetes mellitus with diabetic polyneuropathy (principal); N18.31 Chronic kidney disease, stage 3a; L60.3 Nail dystrophy; L84 Corns and callosities | CPT/HCPCS: 11056; 11721 ==

== ENCOUNTER → 2024-03-01 13:36 | Outpatient (BNVA) | payer MEDICARE, SELFPAY | PROVIDERS: PCP Family Medicine; Visit Provider Podiatrist Foot & Ankle Surgery | DX: E11.42 Type 2 diabetes mellitus with diabetic polyneuropathy (principal); N18.31 Chronic kidney disease, stage 3a; L60.3 Nail dystrophy; L84 Corns and callosities | CPT/HCPCS: 11056; 11721 ==

== ENCOUNTER → 2024-03-09 12:53 | Outpatient (BNVA) | payer MEDICARE, SELFPAY | PROVIDERS: PCP Family Medicine; Visit Provider Internal Medicine | DX: I35.0 Nonrheumatic aortic (valve) stenosis (principal); I10 Essential (primary) hypertension; E78.5 Hyperlipidemia, unspecified; E11.22 Type 2 diabetes mellitus with diabetic chronic kidney disease; N18.31 Chronic kidney disease, stage 3a; G47.33 Obstructive sleep apnea (adult) (pediatric); E66.01 Morbid (severe) obesity due to excess calories; Z68.42 Body mass index [BMI] 45.0-49.9, adult; I25.119 Atherosclerotic heart disease of native coronary artery with unspecified angina pectoris; I12.9 Hypertensive chronic kidney disease with stage 1 through stage 4 chronic kidney disease, or unspecified chronic kidney disease | CPT/HCPCS: 99214 ==

== ENCOUNTER 2024-04-08 14:00 | Outpatient (CLI) | payer MEDICARE, SELFPAY ==
--- NOTE | 2024-04-08 14:15 | USCV_ITS ---
Shaniqua Islas Age: 69 Gender: F : 1955 Exam Date: 04/08/2024 14:17 Ordering Phys: Zacarias Hou M.D ([email or web address]) Technologist: CT Exam Location: [facility] [place] Indication: BP: 138 / 66 HR: 69 Rhythm: Sinus Technical Quality: Adequate MEASUREMENTS (Male / Female) Normal Values 2D ECHO LVOT Diameter 2.0 cm LV Ejection Fraction MOD 4C 59.9 % LV Ejection Fraction MOD 2C 57.3 % LV Ejection Fraction 2C AL 57.8 % LA Diameter 3.9 cm RA Systolic Volume 4C AL 61.4 ml RA Systolic Volume 4C MOD 57.7 ml LA Sys Volume AL 87.2 cm cubed LA Sys Volume Index AL 35.4 cm cubed/m squared Aorta at Sinotubular Diameter 2.4 cm IVC Diameter 2.2 cm M-MODE LA Ao Ratio MM 2.1 AV Cusp Separation MM 0.9 cm DOPPLER AV Peak Velocity 298.0 cm/s LVOT Peak Velocity 98.0 cm/s AV Area Cont Eq vti 1.0 cm squared AV Area Cont Eq pk 1.1 cm squared MV Peak Velocity 271.5 cm/s MV Area PHT 2.6 cm squared Mitral E to A Ratio 0.7 TV Peak Velocity 224.3 cm/s TR Peak Velocity 248.0 cm/s TR Peak Gradient 24.6 mmHg TV Peak E Velocity 67.0 cm/s Right Atrial Pressure 3.0 mmHg Pulmonary Artery Systolic Pressu 27.6 mmHg PV Peak Velocity 93.5 cm/s FINDINGS Left Ventricle Normal left ventricular systolic function. No regional wall motion abnormalities. Left ventricular ejection fraction is estimated at 60 %. Grade I/IV diastolic dysfunction (abnormal relaxation filling pattern), normal to mildly elevated filling pressures. Right Ventricle The right ventricle is normal in size and function. Right Atrium The right atrium is normal in size. Left Atrium Moderately increased left atrial size. . Mitral Valve Moderately thickened mitral valve. No mitral valve stenosis. Mild mitral valve regurgitation. Aortic Valve Severe aortic valve calcification. Moderate to severe aortic valve stenosis, mean gradient 21.7 mmHg, VINI 0.97 cm squared. Trace aortic valve regurgitation. Tricuspid Valve Structurally normal tricuspid valve without significant stenosis or regurgitation. Pulmonary artery systolic pressure is normal. Pulmonic Valve Structurally normal pulmonic valve without significant stenosis. There is no pulmonic regurgitation. Pericardium Normal pericardium without effusion. Aorta Normal ascending aorta dimension. IVC The inferior vena cava appears normal. CONCLUSIONS Normal left ventricular systolic function. No regional wall motion abnormalities. Left ventricular ejection fraction is estimated at 60 %. Grade I/IV diastolic dysfunction (abnormal relaxation filling pattern), normal to mildly elevated filling pressures. Moderately increased left atrial size. . Severe aortic valve calcification. Moderate to severe aortic valve stenosis, mean gradient 21.7 mmHg, VINI 0.97 cm squared. Trace aortic valve regurgitation. There is no pericardial effusion. Right atrial pressure is around 5 mm of mercury. Mono Roberts MD (Electronically Signed) Final Date: 08 April 2024 16:41 S
== END 2024-04-08 14:01 | disposition home or self-care (01) ==
LOC: RAD 14:01
PROVIDERS: PCP Family Medicine; Visit Provider Internal Medicine
DX: I35.0 Nonrheumatic aortic (valve) stenosis (principal); I50.30 Unspecified diastolic (congestive) heart failure; I51.7 Cardiomegaly; I70.0 Atherosclerosis of aorta
CPT/HCPCS: 93306

== ENCOUNTER → 2024-04-11 11:24 | Outpatient (BNVA) | payer MEDICARE, SELFPAY | PROVIDERS: PCP Family Medicine; Visit Provider Family Medicine | DX: M10.9 Gout, unspecified (principal); E03.9 Hypothyroidism, unspecified; E11.22 Type 2 diabetes mellitus with diabetic chronic kidney disease; N18.31 Chronic kidney disease, stage 3a | CPT/HCPCS: 80053; 80061; 83036; 84439; 84443; 84550; 85025 ==

== ENCOUNTER → 2024-05-18 14:35 | Outpatient (BNVA) | payer MEDICARE, SELFPAY | PROVIDERS: PCP Family Medicine; Visit Provider Podiatrist Foot & Ankle Surgery | DX: E11.42 Type 2 diabetes mellitus with diabetic polyneuropathy; L60.3 Nail dystrophy; L84 Corns and callosities; N18.31 Chronic kidney disease, stage 3a | CPT/HCPCS: 11056; 11721; 73630; 99213 ==

== ENCOUNTER → 2024-06-14 14:40 | Outpatient (BNVA) | payer MEDICARE, SELFPAY | PROVIDERS: PCP Family Medicine; Visit Provider Internal Medicine | DX: I12.9 Hypertensive chronic kidney disease with stage 1 through stage 4 chronic kidney disease, or unspecified chronic kidney disease (principal); E11.22 Type 2 diabetes mellitus with diabetic chronic kidney disease; N18.31 Chronic kidney disease, stage 3a; E78.5 Hyperlipidemia, unspecified; I35.0 Nonrheumatic aortic (valve) stenosis; G47.33 Obstructive sleep apnea (adult) (pediatric); E66.01 Morbid (severe) obesity due to excess calories; Z68.42 Body mass index [BMI] 45.0-49.9, adult; I25.119 Atherosclerotic heart disease of native coronary artery with unspecified angina pectoris | CPT/HCPCS: 99214 ==

== ENCOUNTER 2024-06-21 09:13 | Outpatient (CLI) | payer MEDICARE, SELFPAY ==
[2024-06-21 09:34] LABS: Basophils % 0.4 %; Eosinophils # 0.2 10^3/uL (0.0-0.8); Eosinophils % 2.4 %; Hematocrit 39.4 % (36-47); Lymphocytes # 1.6 10^3/uL (0.8-4.8); Lymphocytes % 22.8 %; Mean Corpuscular HGB Conc 32.2 g/dL (30-55); Mean Corpuscular Hemoglobin 30.2 pg (27-33); Mean Corpuscular Volume 93.8 fl (85-98); Mean Platelet Volume 10.1 fL (7.4-10.4); Monocytes # 0.5 10^3/uL (0.2-0.9); Monocytes % 6.5 %; Neutrophils # 4.81 10^3/uL (1.8-7.7); Neutrophils % 67.6 %; Nucleated Red Blood Cells % 0 %; Platelet Count 244 10^3/cmm (157-399); Red Cell Distribution Width 13.8 % (12.1-15.1); White Blood Count 7.11 10^3/uL (3.29-11.43)
[2024-06-21 09:44] LABS: INR 0.97 (0.83-1.21); Prothrombin Time (Patient) 13.1 Seconds (12.0-15.1)
[2024-06-21 09:52] LABS: Anion Gap 14.5 (5-19); Blood Urea Nitrogen 21 mg/dL (8-23); Calcium 9.4 mg/dL (8.5-10.5); Carbon Dioxide 27 mmol/L (22-29); Chloride 99 mmol/L (98-107); Glomerular Filtration Rate 55.1 mL/min (90-130); Glucose 149 mg/dL (65-115); Osmolality Calculated 288 mOsm/kg (285-295); Potassium 4.5 mmol/L (3.5-5.1); Sodium 136 mmol/L (136-145)
== END 2024-06-21 09:14 | disposition home or self-care (01) ==
LOC: LAB 09:15
PROVIDERS: PCP Family Medicine; Visit Provider Internal Medicine
DX: I10 Essential (primary) hypertension (principal); I35.0 Nonrheumatic aortic (valve) stenosis; R58 Hemorrhage, not elsewhere classified
CPT/HCPCS: 36415; 80048; 85025; 85610

== ENCOUNTER 2024-06-28 07:28 | Outpatient (CLI) | payer MEDICARE, SELFPAY ==
[2024-06-28] VITALS (28 sets, daily range): BP systolic 124–198; BP diastolic 62–98; PULSE 57–86; RESP 13–68; TEMP 37; O2SAT 94–99; BMI 43.0
--- NOTE | 2024-06-28 07:30 | XACV_ITS ---
Exam Room: 2 Ht: 170 cm Wt: 125 kg BSA: 2.49 m2 Gender: Female : 1955 Any Known Allergies: Sulfa Exam Priority: Routine Procedure(s): Procedure Description: Diagnostic procedure Procedure Description: Left Heart Catheterization Procedure Description: Right Heart Catheterization Procedure Description: Aortogram Procedure Description: O2 saturation Procedure Description: Miscellaneous Procedure Description: ACT Procedure Description: Coronary Angiography Procedure Description: Pressure Wire Diagnostic Cath Status: Elective Diagnostic Findings * INDICATION: Moderate to severe aortic stenosis/worsening shortness of breath. * Left Main is short vessel and has no significant disease. * Circumflex is dominant vessel. has no significant disease. * Right Coronary Artery has no disease. Small non dominant vessel. * Mid Left Anterior Descending: mild to moderate 40% stenosis right after giving off diagonal artery, JERMAN: 3 flow. * Aortic valve study: Mean gradient across aortic valve of 42mmHg. Aortic valve area is 1.08cm2. * Right heart cath: Midly elevated right and left sided cardiac pressures. * Coronary angiography shows left dominance. Interventional Findings * Procedure detail: Regurg left main artery with XB 3.5 guide catheter. IV heparin was administered to maintain anticoagulation. After normalization, IFR wire was advanced into distal LAD. iFR value of 0.92 was obtained. As this was nonischemic, medical therapy was decided. Patient left the mini lab operator in a stable condition. Conclusions 1. Severe aortic stenosis ( confirmed with mean gradient across aortic valve of 42 mmHg with aortic valve area 1.08 cm 2). 2. Moderate mid LAD stenosis s/p IFR showing non-ischemic value of 0.92. 3. Mildly elevated right and left sided cardiac pressures. Recommendations * We will refer patient to tertiary care center for aortic valve replacement. Interventional RX Recommendation: other cardiac therapy w/o CABG/PCI Diagnostic RX Recommendation: other cardiac therapy w/o CABG/PCI Anticoagulation: Heparin Pressures Phase:Rest AO : 155 / 77 ( 103 ) @ 10:27:00 AM 142 / 71 ( 100 ) @ 10:40:00 AM 142 / 67 ( 95 ) @ 10:46:00 AM LV : 173 / -7 / 9 @ 10:40:00 AM RV : 38 / 9 / 14 @ 10:24:00 AM PA : 36 / 18 ( 25 ) @ 10:23:00 AM RA : a wave = 16 v wave = 15 mean = 13 @ 10:25:00 AM PCW : a wave = 16 v wave = 16 mean = 14 @ 10:22:00 AM O2 Content Phase:Rest PA : O2 Content O2: 75.8 @ 10:40:00 AM Saturations Phase:Rest AO : 95 @ 10:27:00 AM PA : 76 @ 10:40:00 AM Cardiac Output Phase:Rest Jesse : 7 @ 11:04:55 AM Jesse Cardiac Index: 3 @ 11:04:55 AM Flow Phase:Rest Qp : 7 @ 11:04:55 AM Qs : 7 @ 11:04:55 AM Valves Phase:DefaultPhase AV : 31.0 @ 11:04:55 AM 31.0 @ 11:04:55 AM AV Mean Gradient: 42.0 @ 11:04:55 AM AV Flow: 310 @ 11:04:55 AM AV Area: 1.1 @ 11:04:55 AM AV Area Index: 0.47 @ 11:04:55 AM Clinical Evaluation EBL: 5mL-10mL Procedural Details Procedure Consent Obtained. Admit Source: Out Patient. Pre-Procedure Time Out. Identified patient by full name and date of as verbalized by the patient/guarantor. Does the consent match the physician's order: Yes. Accurate & Complete Informed Consent: Yes. Inpatient/Outpatient History & Physical on Chart: Yes. If H&P is completed, is and addenduem needed: No; If yes, is the addendum complete: N/A. Visualize and Verify Site with Patient/Guarantor: N/A. Relevant Radiology Images available: N/A. The risks, benefits, and alternatives of sedation and/or procedure were discussed by physician. The patient agrees to continue. Procedure started. [facility] Clinical Fraility Score: 4: Vulnerable. Maxillofacial Prosthodontist Indications: Valvular Disease. Correct patient, site and procedure confirmed by cath team. Current diagnosis: Aortic Valve stenosis. PERRLA. Strong, equal hand admissions assistant bilaterally. Lungs clear x 5 lobes. IV Site on Arrival: 20 gauge in the left anticubital. IV Fluids: 0.9% NaCl at KVO. 0 mL infused prior to mini lab operator. Pre Procedural Pulses: bilateral radial was 3+. Pre Procedural Pulses: bilateral posterior tibial was 1+. Pre Procedural Pulses: bilateral dorsalis pedis was 2+. bilateral groins was prepped with chloroprep then draped in the usual sterile fashion. Baseline sample Acquired. HR: 72 BPM. Physician notified. Physician arrived. Physician scrubbed in. Immediate Pre-Procedure Time Out. Correct Patient: Yes; Correct Procedure: Yes; Correct Site: Yes; Correct Patient Position: Yes; Correct Supplies: Yes; Dried Flammable Prep: Yes; Blood Products Available: No;. Lidocaine 1% infiltrated to the right groin. Venous access obtained with a micropuncture set. An attempt to gain access to the right femoral artery was unsuccessful. Manual pressure was held as needed to stop the bleeding. Ultrasound obtained to assist with arterial access. Arterial access obtained with micropuncture set. Lamoure-Devante MON catheter inserted through 6fr femoral venous sheath. Pressure measurements obtained. Lamoure-Devante out. ABG drawn and sent with respiratory therapy. A 5 honduran JL4 catheter in over wire. Multiple views taken of left coronary artery. Catheter removed over the standard wire. A 5 honduran JR4 catheter in over wire. View taken of right coronary artery. Glidewire in through catheter. Catheter advanced to LV. Glidewire out. Standard exchange wire in through catheter. Catheter removed over the exchange wire. 6fr dual lumen Bertin catheter in over exchange wire. Wire out. Gradient taken: LV 173/-8,9; AO 142/71(100); Mean: 42mmHg, Peak to Peak: 31mmHg, SEP: 21sec/min; HR: 67 BPM; SpO2: 98%. Catheter removed over the standard wire. 6 honduran XB 3.5 guide catheter was inserted over the wire. Oxygen started at 2liters/min via nasal canula. Add inventory: Co-ship pilot, Endoflator. IFR pressure wire in through guide catheter to lesion in mid LAD. IFR wire normalized. Guidewire advanced across lesion. IFR mid LAD 0.92 mmHg. iFR wire out. Guide catheter out. ACT drawn. Results 254 seconds. Therapeutic limits - pre-heparin administration 90-150 seconds and monitoring heparin during a vascular procedure >250 seconds. A Right femoral angiogram was performed to determine safe placement of closure device. Post Procedure: Pulses reassessed and unchanged. PERRLA. Strong, equal hand admissions assistant bilaterally. No VTE prophylaxis required. Medication's Wasted: Lidocaine 1% = 10 mL. Medication's Wasted: Heparin = 2000 units. Total IV fluids: 75 mL. A Suture was successful obtaining hemostatsis at the Right Femoral artery insertion site. A Suture was successful obtaining hemostatsis at the Right Femoral vein insertion site. Post-op diagnosis: Severe Aortic Stenosis, Moderate LAD stenosis. Complications: None. Estimated blood loss: 5mL-10mL. Responsiveness - Normal response to verbal stimuli; alert and oriented, PERRLA. Airway - Unaffected, no intervention required; spontaneous ventilation. Circulation: W/N/L, pulses unchanged. Nausea/Vomiting: No. Procedure completed. Sheath(s) sutured into position with 2-0 silk and sterile 4x4's and Op-site applied over the site. No oozing or signs and symptoms of hematoma noted. Arterial sheath flushed and connected to tranducer and pressure bag with heparinized saline. Patient transferred by stretcher to CPRU. Vital chart was stopped. Access Site Site: Right Femoral vein Sheath Size: 6 Fr Hemostasis Method: Suture Hemostasis Success: Successful Site: Right Femoral artery Sheath Size: 6 Fr Hemostasis Method: Suture Hemostasis Success: Successful Procedure Medications Start: 10:06 AM Stop: 10:06 AM Medication: Versed Amount: 1 mg Route: I.V. Start: 10:10 AM Stop: 10:10 AM Medication: Fentanyl Amount: 25 mcg Route: I.V. Start: 10:15 AM Stop: 10:15 AM Medication: Versed Amount: 1 mg Route: I.V. Start: 10:25 AM Stop: 10:25 AM Medication: Versed Amount: 1 mg Route: I.V. Start: 10:25 AM Stop: 10:25 AM Medication: Fentanyl Amount: 25 mcg Route: I.V. Start: 10:41 AM Stop: 10:41 AM Medication: Versed Amount: 1 mg Route: I.V. Start: 10:41 AM Stop: 10:41 AM Medication: Fentanyl Amount: 25 mcg Route: I.V. Start: 10:43 AM Stop: 10:43 AM Medication: Heparin Amount: 45564 units Route: I.V. Start: 10:58 AM Stop: 10:58 AM Medication: Fentanyl Amount: 25 mcg Route: I.V. I, the attending physician, have reviewed and verified all procedure medications. Yes, all medications given per verbal order History/Risk Factors Hypertension: Yes Dyslipidemia: Yes Peripheral Arterial Disease (PAD): Yes Myocardial Infarction (NH): No Obesity: Yes Renal Disease: No Tobacco Use: Never Prior Interventions PCI: No CABG: No Valve Surgery: No Report Signatures Finalized by Zacarias Hou MD on 06/28/2024 12:00 PM
[2024-06-28] MEDS: diphenhydrAMINE 50 mg Capsule PO (07:40)
--- NOTE | 2024-06-28 09:47 | W.PM.OPSUD ---
Surgery/Procedure H&P Update DATE OF PROCEDURE: June 28, 2024 DATE H&P PERFORMED: 06/14/24 H&P UPDATE INFORMATION: I have reviewed H&P completed within last 30 days, I have examined patient prior to procedure and No changes to prior documentation PREOP DIAGNOSIS: Moderate to severe aortic stenosis/ worsening shortness of breath PRIMARY INDICATION FOR PROCEDURE: Moderate to severe aortic stenosis/ worsening shortness of breath PLANNED PROCEDURE: Operation Date: 06/28/24 10:00 Proposed Procedures p Cardiac Catheterization(Bilateral) - Zacarias Hou M.D Possible percutaneous coronary intervention PATIENT REASSESSED PRIOR TO SEDATION, WITH NO CHANGE NOTED: Yes PHYSICAL EXAM: alert, oriented x 3 and regular rate & rhythm OTHER PERTINENT EXAM FINDINGS: Grade 3/6 systolic murmur AIRWAY EVAL/ANESTHESIA PLAN: normal airway, ASA III, Local Anesthesia, Risks, benefits & alternatives of sedation and/or procedure discussed and Patient agrees to continue as planned ADDITIONAL INFORMATION: Moderate sedation
[2024-06-28 10:28] LABS: Arterial Blood Gas Hematocrit 36.5 % (37-47); Blood Gas Operator Identificat WALCI; Blood Gas Sample Site Not specified; Blood Gas Sample Type Not specified; HGB O2 Sat 74.3 % (95-100); Methemoglobin 0.9 % (0.4-1.5); Oxygen Device ROOM AIR; Total Hemoglobin 11.9 g/dL (12-16)
[2024-06-28 10:30] LABS: Blood Gas Operator Identificat WALCCI; Blood Gas Sample Type Not specified; Carboxyhemoglobin 0.8 %THgb (0.4-20.1); HGB O2 Sat 93.1 % (95-100); Methemoglobin 0.9 % (0.4-1.5); Oxygen Device ROOM AIR; Total Hemoglobin 11.7 g/dL (12-16)
--- NOTE | 2024-06-28 11:03 | SUR.EXTENDED ---
Received the patient back from the tree tapping laborer s/p diagnostic R & LHC via bed. Patient drowsy but awakens easily to voice commands. A & O x 3. 6 jamaican venous sheath sutured in to the right groin. Will pull in 2 hours. 6 fr arterial sheath sutured in to the right groin. Plain to Mynx later today. Palpable PT and DP pulses in the right foot. No other assessment changes noted. Spouse at bedside.
--- NOTE | 2024-06-28 11:22 | PM.PROC ---
Procedure Note: Date of procedure: 06/28/24 Pre-procedure diagnosis: Moderate to severe aortic stenosis Post-procedure diagnosis: other (Severe aortic stenosis) Procedure: Left heart cath: Moderate mid LAD stenosis s/p IFR that is non-ischemic. Medical therapy Aortic valve study: Aortic valve area : 1.08cm2 . Mean gradient across aortic valve of 42mmHg Right heart cath performed as well Full report to follow. Op report anesthesia: Local and None (Moderate sedation) Performing Provider: Zacarias Hou Estimated blood loss (mL): 15 Complications: None Pathology: none sent Condition: stable Disposition: same day (Same day discharge) Coding Level of Care Code Acute Code for [facility] Fwd
[2024-06-28] MEDS: hyDRALAzine 20 mg/mL INJ 1 mL IVP (11:29)
--- NOTE | 2024-06-28 11:30 | SUR.EXTENDED ---
BP elevated On arrival to CPRU the patients BP was 198/98. Dr. Hou was notified in person with new orders received for Hydralazine. See MAR for administraion time.
[2024-06-28 12:20] LABS: Blood Gas Sample Site MIXED
--- NOTE | 2024-06-28 12:45 | SUR.EXTENDED ---
Dr. Hou at bedside. MYNX closure successful to the right groin (arterial site) using sterile technique after being cleansed with chloraprep. Patient tolerated well. 6 fr venous sheath removed from the right groin at 1255 by this nurse. Manual pressure held x 10 minutes. Right groin soft with no bleeding or hematoma noted. Patient tolerated well. Vital signs remained stable. BR x 4 hours.
--- NOTE | 2024-06-28 13:52 | SUR.EXTENDED ---
MYNX lot # [id number]. Exp. 06/03/2026.
--- NOTE | 2024-06-28 16:27 | PC.NURSE ---
Pain Complaints of right groin discomfort and chest discomfort. Right groin site checked, site is asymptomatic no signs or palpation of hematoma. Dressing is clean, dry, and intact. Complains of chest discomfort rates 3/10. Reports pain is with inspiration and requesting tylenol. Patient assisted with bedpan at this time. Dr. Hou notified of reports of pain, current vital signs, and nursing assessment. Received verbal orders to administer 650mg tylenol PO X 1.
[2024-06-28] MEDS: acetaminophen 325 mg Tablet 650 MG PO (16:35)
--- NOTE | 2024-06-28 17:09 | PC.NURSE ---
Ambulation Assisted patient with ambulation post 4 hr bedrest period. Duration of activity 5 minutes. Right groin site is asymptomatic. No observation or palpation of hematoma. Pt assisted up to chair. Patient reports chest pain is better after ambulation.
--- NOTE | 2024-06-28 17:29 | PC.NURSE ---
Patient sitting up in chair . Denies chest pain. Right groin site continues to be asymptomatic. Dressing clean, dry, and intact.
--- NOTE | 2024-06-28 17:56 | PC.NURSE ---
Discharge Discharge instructions given to patient and verbally and written instructions to take home. Pt verbalized understanding and asking appropriate questions regarding discharge home care. Pt denies chest pain, complains of minimal right groin discomfort. Right groin site continues to remain asymptomatic. no signs of bleeding or hematoma. Dressin is clean, dry, and intact.
== END 2024-06-28 18:02 | disposition home or self-care (01) ==
PROVIDERS: PCP Family Medicine; Visit Provider Internal Medicine
DX: I35.0 Nonrheumatic aortic (valve) stenosis (principal); E78.5 Hyperlipidemia, unspecified; I73.9 Peripheral vascular disease, unspecified; E66.9 Obesity, unspecified; Z68.41 Body mass index [BMI] 40.0-44.9, adult; E11.22 Type 2 diabetes mellitus with diabetic chronic kidney disease; I12.9 Hypertensive chronic kidney disease with stage 1 through stage 4 chronic kidney disease, or unspecified chronic kidney disease; N18.30 Chronic kidney disease, stage 3 unspecified; Z86.0100 Personal history of colon polyps, unspecified; K21.9 Gastro-esophageal reflux disease without esophagitis; E03.9 Hypothyroidism, unspecified
CPT/HCPCS: 36415; 82810; 85347; 93460; 93571; 96365; 96374; 99152; 99153; C1751; C1760; C1769; C1887; C1894; G0269; J0360; J1644; J2250; J3010; J7030; Q0163; Q9967

== ENCOUNTER → 2024-07-07 14:24 | Outpatient (BNVA) | payer MEDICARE, SELFPAY | PROVIDERS: PCP Family Medicine; Visit Provider Nurse Practitioner Family | DX: Z09 Encounter for follow-up examination after completed treatment for conditions other than malignant neoplasm (principal); I35.0 Nonrheumatic aortic (valve) stenosis; I25.10 Atherosclerotic heart disease of native coronary artery without angina pectoris; I10 Essential (primary) hypertension | CPT/HCPCS: 99214 ==

== ENCOUNTER → 2024-07-07 15:27 | Outpatient (BNVA) | payer MEDICARE, SELFPAY | PROVIDERS: PCP Family Medicine; Visit Provider Nurse Practitioner Family | DX: Z09 Encounter for follow-up examination after completed treatment for conditions other than malignant neoplasm (principal); E78.5 Hyperlipidemia, unspecified; I10 Essential (primary) hypertension; I25.119 Atherosclerotic heart disease of native coronary artery with unspecified angina pectoris; E11.22 Type 2 diabetes mellitus with diabetic chronic kidney disease; N18.31 Chronic kidney disease, stage 3a | CPT/HCPCS: 36415; 80053; 83036; 84443 ==

== ENCOUNTER → 2024-08-10 14:00 | Outpatient (BNVA) | payer MEDICARE, SELFPAY | PROVIDERS: PCP Family Medicine; Visit Provider Podiatrist Foot & Ankle Surgery | DX: E11.42 Type 2 diabetes mellitus with diabetic polyneuropathy (principal); N18.31 Chronic kidney disease, stage 3a; L60.3 Nail dystrophy; L84 Corns and callosities | CPT/HCPCS: 11056; 11721 ==

== ENCOUNTER 2024-10-18 11:06 | Outpatient (RCR) | payer MEDICARE, SELFPAY | END 2024-11-16 23:59 | disposition home or self-care (01) | LOC: CR 11:06 | PROVIDERS: PCP Family Medicine; Referring Provider Physician Assistant; Visit Provider Physician Assistant | DX: Z95.2 Presence of prosthetic heart valve (principal) | CPT/HCPCS: 93798 ==

== ENCOUNTER → 2024-11-09 13:01 | Outpatient (BNVA) | payer MEDICARE, SELFPAY | PROVIDERS: PCP Family Medicine; Visit Provider Podiatrist Foot & Ankle Surgery | DX: E11.42 Type 2 diabetes mellitus with diabetic polyneuropathy (principal); L60.3 Nail dystrophy; L84 Corns and callosities; N18.31 Chronic kidney disease, stage 3a; M21.41 Flat foot [pes planus] (acquired), right foot; M21.42 Flat foot [pes planus] (acquired), left foot; M21.611 Bunion of right foot; M21.612 Bunion of left foot; E11.22 Type 2 diabetes mellitus with diabetic chronic kidney disease | CPT/HCPCS: 11056; 11721; 99213 ==

== ENCOUNTER 2024-11-17 09:07 | Outpatient (RCR) | payer MEDICARE, SELFPAY | END 2024-12-17 23:59 | disposition home or self-care (01) | LOC: CR 09:07 | PROVIDERS: PCP Family Medicine; Referring Provider Physician Assistant; Visit Provider Physician Assistant | DX: Z95.2 Presence of prosthetic heart valve (principal) | CPT/HCPCS: 93798 ==

== ENCOUNTER → 2024-11-22 09:47 | Outpatient (BNVA) | payer MEDICARE, SELFPAY | PROVIDERS: PCP Family Medicine; Visit Provider Family Medicine | DX: B37.31 Acute candidiasis of vulva and vagina (principal); E03.9 Hypothyroidism, unspecified; I10 Essential (primary) hypertension; E11.22 Type 2 diabetes mellitus with diabetic chronic kidney disease; N18.31 Chronic kidney disease, stage 3a | CPT/HCPCS: 80053; 80061; 81000; 83036; 84439; 84443; 85025 ==

== ENCOUNTER 2024-12-20 08:36 | Outpatient (RCR) | payer MEDICARE, SELFPAY | END 2025-01-16 23:59 | disposition home or self-care (01) | LOC: CR 08:36 | PROVIDERS: PCP Family Medicine; Visit Provider Family Medicine | DX: Z95.2 Presence of prosthetic heart valve (principal) | CPT/HCPCS: 93798 ==

== ENCOUNTER → 2025-01-13 10:42 | Outpatient (BNVA) | payer MEDICARE, SELFPAY | PROVIDERS: PCP Family Medicine; Visit Provider Internal Medicine | DX: I12.9 Hypertensive chronic kidney disease with stage 1 through stage 4 chronic kidney disease, or unspecified chronic kidney disease (principal); E78.5 Hyperlipidemia, unspecified; E11.22 Type 2 diabetes mellitus with diabetic chronic kidney disease; N18.31 Chronic kidney disease, stage 3a; G47.33 Obstructive sleep apnea (adult) (pediatric); E66.01 Morbid (severe) obesity due to excess calories; Z68.42 Body mass index [BMI] 45.0-49.9, adult; I25.119 Atherosclerotic heart disease of native coronary artery with unspecified angina pectoris; Z95.2 Presence of prosthetic heart valve | CPT/HCPCS: 99214 ==

== ENCOUNTER 2025-01-17 08:55 | Outpatient (RCR) | payer MEDICARE, SELFPAY | END 2025-02-16 23:59 | disposition home or self-care (01) | LOC: CR 08:55 | PROVIDERS: PCP Family Medicine; Visit Provider Family Medicine | DX: Z95.2 Presence of prosthetic heart valve (principal) | CPT/HCPCS: 93798 ==

== ENCOUNTER → 2025-02-06 13:18 | Outpatient (BNVA) | payer MEDICARE, SELFPAY | PROVIDERS: PCP Family Medicine; Visit Provider Podiatrist Foot & Ankle Surgery | DX: E11.42 Type 2 diabetes mellitus with diabetic polyneuropathy (principal); L60.3 Nail dystrophy; L84 Corns and callosities; E11.8 Type 2 diabetes mellitus with unspecified complications; N18.31 Chronic kidney disease, stage 3a | CPT/HCPCS: 11056; 11721 ==

== ENCOUNTER 2025-02-17 14:16 | Outpatient (RCR) | payer MEDICARE, SELFPAY | END 2025-03-19 23:59 | disposition home or self-care (01) | LOC: CR 14:16 | PROVIDERS: PCP Family Medicine; Visit Provider Family Medicine | DX: Z95.2 Presence of prosthetic heart valve (principal) | CPT/HCPCS: 93798 ==

== ENCOUNTER 2025-03-15 13:41 | Outpatient (CLI) | payer MEDICARE, SELFPAY ==
--- NOTE | 2025-03-15 13:45 | USCV_ITS ---
Roshan Shaniqua Age: 69 Gender: F : 1955 Exam Date: 03/15/2025 13:53 Ordering Phys: Sarabjit Navarro MD Technologist: YENIFER Exam Location: [facility] – [place] Indication: left lateral calf lump HISTORY: Pulmonary embolism-pt is currently on blood thinner-small hard lump on the left lateral calf PROCEDURES: Venous duplex imaging was performed in only the left lower extremity. The following venous structures were evaluated: common femoral vein, profunda vein, proximal portion of the greater saphenous vein, superficial femoral vein, and the popliteal vein. In addition, the posterior tibial and peroneal trunk were evaluated. FINDINGS: Normal 2-D Doppler and augmentation and compressibility throughout the lower extremity venous structures. Additional imaging through the proximal calf veins also reveals no thrombus. Limited evaluation of the greater saphenous vein is patent with no thrombus. Scanned over pt directed area in the left lateral calf CONCLUSIONS No evidence of left lower extremity DVT. Heterogeneous ovoid lesion in the area of palpable concern, lateral calf, measuring 1.9x 1.7cm. This is technically indeterminate but suspicious for hematoma considering history of blood thinners Recommend follow up to ensure resolution Shawn Rod MD (Electronically Signed) Final Date: 15 March 2025 15:29 S
== END 2025-03-15 13:42 | disposition home or self-care (01) ==
LOC: RAD 13:44
PROVIDERS: PCP Family Medicine; Visit Provider Family Medicine
DX: I82.890 Acute embolism and thrombosis of other specified veins (principal); I83.899 Varicose veins of unspecified lower extremity with other complications; R93.6 Abnormal findings on diagnostic imaging of limbs
CPT/HCPCS: 93971

== ENCOUNTER 2025-03-21 12:42 | Outpatient (RCR) | payer SELFPAY | END 2025-04-18 23:59 | disposition home or self-care (01) | LOC: CR 12:42 | PROVIDERS: PCP Family Medicine; Visit Provider Family Medicine | DX: Z95.2 Presence of prosthetic heart valve (principal) ==

== ENCOUNTER 2025-04-04 09:50 | Outpatient (RCR) | payer MEDICARE, SELFPAY | END 2025-04-18 23:59 | disposition home or self-care (01) | LOC: SPT 09:50 | PROVIDERS: PCP Family Medicine; Visit Provider Family Medicine | DX: N39.46 Mixed incontinence (principal) | CPT/HCPCS: 97110; 97161; 97530 ==

== ENCOUNTER → 2025-04-11 09:17 | Outpatient (BNVA) | payer MEDICARE, SELFPAY | PROVIDERS: PCP Family Medicine; Visit Provider Podiatrist Foot & Ankle Surgery | DX: E11.42 Type 2 diabetes mellitus with diabetic polyneuropathy (principal); L60.3 Nail dystrophy; L84 Corns and callosities; N18.31 Chronic kidney disease, stage 3a; E11.8 Type 2 diabetes mellitus with unspecified complications | CPT/HCPCS: 11056; 11721 ==

== ENCOUNTER 2025-04-19 05:00 | Outpatient (RCR) | payer MEDICARE, SELFPAY | END 2025-05-19 23:59 | disposition home or self-care (01) | LOC: SPT 05:00 | PROVIDERS: PCP Family Medicine; Visit Provider Family Medicine | DX: N39.46 Mixed incontinence (principal) | CPT/HCPCS: 97110; 97530 ==

== ENCOUNTER 2025-04-19 12:22 | Outpatient (RCR) | payer SELFPAY | END 2025-05-19 23:59 | disposition home or self-care (01) | LOC: CR 12:22 | PROVIDERS: PCP Family Medicine; Visit Provider Family Medicine | DX: Z95.4 Presence of other heart-valve replacement (principal) ==

== ENCOUNTER → 2025-04-27 09:39 | Outpatient (BNVA) | payer MEDICARE, SELFPAY | PROVIDERS: PCP Family Medicine; Visit Provider Podiatrist Foot & Ankle Surgery | DX: M20.41 Other hammer toe(s) (acquired), right foot (principal); M20.42 Other hammer toe(s) (acquired), left foot; E11.42 Type 2 diabetes mellitus with diabetic polyneuropathy; N18.31 Chronic kidney disease, stage 3a; L84 Corns and callosities; M20.40 Other hammer toe(s) (acquired), unspecified foot; E11.8 Type 2 diabetes mellitus with unspecified complications | CPT/HCPCS: 28010 ==

== ENCOUNTER → 2025-05-11 10:13 | Outpatient (BNVA) | payer MEDICARE, SELFPAY | PROVIDERS: PCP Family Medicine; Visit Provider Podiatrist Foot & Ankle Surgery | DX: E11.42 Type 2 diabetes mellitus with diabetic polyneuropathy (principal); N18.31 Chronic kidney disease, stage 3a; L84 Corns and callosities; M20.41 Other hammer toe(s) (acquired), right foot; M20.42 Other hammer toe(s) (acquired), left foot | CPT/HCPCS: 99213 ==

== ENCOUNTER 2025-05-20 05:00 | Outpatient (RCR) | payer MEDICARE, SELFPAY | END 2025-06-18 23:59 | disposition home or self-care (01) | LOC: SPT 05:00 | PROVIDERS: PCP Family Medicine; Visit Provider Family Medicine | DX: R32 Unspecified urinary incontinence (principal); N39.46 Mixed incontinence | CPT/HCPCS: 97110 ==

== ENCOUNTER 2025-05-20 13:48 | Outpatient (RCR) | payer SELFPAY | END 2025-06-18 23:59 | disposition home or self-care (01) | LOC: CR 13:48 | PROVIDERS: PCP Family Medicine; Visit Provider Family Medicine | DX: Z95.2 Presence of prosthetic heart valve (principal) | CPT/HCPCS: 93798 ==

== ENCOUNTER → 2025-06-07 09:18 | Outpatient (BNVA) | payer MEDICARE, SELFPAY | PROVIDERS: PCP Family Medicine; Visit Provider Family Medicine | DX: E11.22 Type 2 diabetes mellitus with diabetic chronic kidney disease (principal); I12.9 Hypertensive chronic kidney disease with stage 1 through stage 4 chronic kidney disease, or unspecified chronic kidney disease; N18.31 Chronic kidney disease, stage 3a | CPT/HCPCS: 80053; 80061; 83036; 84439; 84443; 85025 ==

== ENCOUNTER 2025-06-19 05:00 | Outpatient (RCR) | payer MEDICARE, SELFPAY | END 2025-07-19 23:59 | disposition home or self-care (01) | LOC: SPT 05:00 | PROVIDERS: PCP Family Medicine; Visit Provider Family Medicine | DX: R32 Unspecified urinary incontinence (principal); N39.46 Mixed incontinence | CPT/HCPCS: 97530 ==

== ENCOUNTER 2025-06-19 12:43 | Outpatient (RCR) | payer SELFPAY | END 2025-07-19 23:59 | disposition home or self-care (01) | LOC: CR 12:43 | PROVIDERS: PCP Family Medicine; Visit Provider Family Medicine | DX: Z95.2 Presence of prosthetic heart valve (principal) ==

== ENCOUNTER → 2025-07-04 09:21 | Outpatient (BNVA) | payer MEDICARE, SELFPAY | PROVIDERS: PCP Family Medicine; Visit Provider Podiatrist Foot & Ankle Surgery | DX: E11.42 Type 2 diabetes mellitus with diabetic polyneuropathy (principal); L60.3 Nail dystrophy; L84 Corns and callosities; E11.8 Type 2 diabetes mellitus with unspecified complications; N18.31 Chronic kidney disease, stage 3a | CPT/HCPCS: 11056; 11721 ==

== ENCOUNTER → 2025-07-18 15:03 | Outpatient (BNVA) | payer MEDICARE, SELFPAY | PROVIDERS: PCP Family Medicine; Visit Provider Internal Medicine | DX: I48.91 Unspecified atrial fibrillation (principal); Z79.01 Long term (current) use of anticoagulants; Z95.0 Presence of cardiac pacemaker; Z95.2 Presence of prosthetic heart valve; I12.9 Hypertensive chronic kidney disease with stage 1 through stage 4 chronic kidney disease, or unspecified chronic kidney disease; N18.30 Chronic kidney disease, stage 3 unspecified | CPT/HCPCS: 99214 ==